=== PATIENT | male | born 1945 | race Caucasian/White ===

== ENCOUNTER → 2018-06-20 14:00 | Outpatient (CLI) | payer MEDICARE, OTHER, SELFPAY ==
--- NOTE | 2018-06-20 | DI.MRI.S_ITS ---
PROCEDURE: MR SHOULDER RT WO CON INDICATIONS: INJURY OF RIGHT SHOULDER TECHNIQUE: Noncontrast oblique coronal T2 fast spin echo with fat saturation, oblique sagittal T1 spin echo and T2 fast spin echo with fat saturation, axial T1 spin echo and T2 fast spin echo with fat saturation through the shoulder. COMPARISON: None. FINDINGS: Image quality: Excellent. Rotator cuff: There is high-grade articular surface partial thickness to full-thickness rupture involving the anterior to mid fibers of the distal supraspinatus at its insertion on the humeral head with 1.7 cm medial retraction of torn tendon fibers to the level of acromion and musculotendinous junction. Infraspinatus tendinosis or low-grade articular surface partial-thickness tear is seen. Tendinosis and low to moderate grade partial-thickness tear involving superior to mid fibers of distal subscapularis is also seen, extending to the level of musculotendinous junction. Sagittal images demonstrate supraspinatus muscle atrophy with approximately 30% loss of loss of muscle mass. Bones and bursae: No bone marrow contusions or fractures. Moderate a.c. joint and glenohumeral joint osteoarthritis is seen. The acromion demonstrates conventional anatomy, without an os acromiale. Moderate amount of subacromial subdeltoid bursal fluid and small amount of glenohumeral joint effusion is seen. No gross loose body. Capsule and soft tissues: Proximal intra-articular portion of the biceps tendon is not visualized and is suggestive of torn proximal long head of biceps tendon. Degenerative signal throughout labrum is seen with suggestion of superior anterior labral tear at 12 to 2:00 position. The rotator interval appears normal, without fibrosis. The coracohumeral ligament is normal in thickness. IMPRESSION: 1. Moderate to high-grade articular surface partial-thickness tear to full-thickness rupture involving anterior to mid fibers of distal supraspinatus with 1.7 cm medial retraction of torn tendon fibers to the level of acromion and musculotendinous junction. Mild to moderate atrophy of supraspinatus muscle. 2. Tendinosis and low-grade articular surface partial-thickness tear involving distal infraspinatus. Tendinosis and moderate grade partial-thickness tear involving superior to mid fibers of distal subscapularis. Suggestion of torn proximal intra-articular portion of the biceps tendon. 3. Degenerative changes throughout labrum with suggestion of superior anterior labral tear at 12 to 2:00 position. 4. Moderate amount of joint effusion or subacromial subdeltoid bursal fluid. Moderate a.c. and glenohumeral joint osteoarthritis. Dictated by: Carlos Lester M.D. on 06/20/2018 at 15:31 Approved by: Carlos Lester M.D. on 06/20/2018 at 15:55
== END ==
PROVIDERS: PCP Family Medicine; Visit Provider Family Medicine
DX: S46.011A Strain of muscle(s) and tendon(s) of the rotator cuff of right shoulder, initial encounter (principal); M25.411 Effusion, right shoulder; M19.011 Primary osteoarthritis, right shoulder
CPT/HCPCS: 73221

== ENCOUNTER → 2018-07-13 08:11 | Outpatient (CLI) | payer MEDICARE, OTHER, SELFPAY ==
[2018-07-13 10:06] LABS: Add Manual Diff / Slide Review NO; Basophils Percent Auto 0.4 % (0-2); Eosinophils Percent Auto 3.4 % (2-4); Hematocrit 42.4 % (41-53); Hemoglobin 14.8 g/dL (13.5-17.5); Lymphocytes Percent Auto 45.8 % (25-40); Mean Corpuscular Hemoglobin 31.5 PG (26-34); Monocytes Percent Auto 8.6 % (3-14); Neutrophils Absolute Auto 2300 /uL (3000-5900); Neutrophils Percent Auto 41.8 % (50-75); Platelet Count 203 X10^3/uL (150-400); Red Blood Cell Count 4.71 X10^6/uL (4.5-5.9); Red Cell Distribution Width 12.6 % (11.6-14.8); White Blood Cell Count 5.4 X10^3/uL (4.5-11.0)
[2018-07-13 10:20] LABS: Alanine Aminotransferase 42 IU/L (21-72); Albumin 4.4 g/dL (3.5-5.0); Albumin Globulin Ratio 1.3 (1.0-2.8); Alkaline Phosphatase 48 U/L (38-126); Aspartate Aminotransferase 38 IU/L (17-59); Bilirubin Total 0.7 mg/dL (0.2-1.3); Blood Urea Nitrogen 19 mg/dL (9-20); Calcium 9.4 mg/dL (8.4-10.2); Carbon Dioxide 28 mmol/L (22-32); Chloride 101 mmol/L (98-107); Cholesterol 256 mg/dL (140-199); Estimated Glomerular Filt Rate > 60.0 mL/min (>60); Globulin 3.3 g/dL (1.7-4.1); Glucose 97 mg/dL (80-110); HDL Cholesterol 63 mg/dL (40-60); HEMOLYSIS < 15 (0-50); LDL Cholesterol Calculated 174 mg/dL (<100); Potassium 4.4 mmol/L (3.4-5.1); Sodium 142 mmol/L (137-145); Total Protein 7.7 g/dL (6.3-8.2); Triglycerides 93 mg/dL (35-150)
== END ==
PROVIDERS: PCP Family Medicine; Visit Provider Family Medicine
DX: E78.5 Hyperlipidemia, unspecified (principal); Z12.5 Encounter for screening for malignant neoplasm of prostate
CPT/HCPCS: 36415; 80053; 80061; 85025; G0103

== ENCOUNTER → 2018-08-27 08:05 | Outpatient (CLI) | payer MEDICARE, OTHER, SELFPAY ==
[2018-08-27 09:35] LABS: Cholesterol 224 mg/dL (140-199); HDL Cholesterol 73 mg/dL (40-60); LDL Cholesterol Calculated 136 mg/dL (<100); Triglycerides 75 mg/dL (35-150)
== END ==
PROVIDERS: PCP Family Medicine; Visit Provider Family Medicine
DX: E78.5 Hyperlipidemia, unspecified (principal)
CPT/HCPCS: 36415; 80061

== ENCOUNTER 2019-06-23 12:05 | Emergency (ER) | payer MEDICARE, OTHER, SELFPAY ==
[2019-06-23] VITALS (7 sets, daily range): BP systolic 141–169; BP diastolic 69–87; PULSE 58–84; RESP 13–17; O2SAT 94–96; BMI 25.1
--- NOTE | 2019-06-23 12:21 | DI.RAD.S_ITS ---
PROCEDURE: XR CHEST 1V INDICATIONS: chest pain TECHNIQUE: One view of the chest was acquired. COMPARISON: [facility], , CHEST 1 VIEW, 08/02/2009, 12:30. FINDINGS: Surgical changes and devices: None. Lungs and pleura: Lungs are clear. No pleural effusions or pneumothorax. Mediastinum: Mediastinal contours appear normal. Heart size is normal. Bones and chest wall: No suspicious bony lesions. Overlying soft tissues appear unremarkable. IMPRESSION: No evidence acute pulmonary process. Dictated by: Yimi Hitchcock M.D. on 06/23/2019 at 13:02 Approved by: Yimi Hitchcock M.D. on 06/23/2019 at 13:04
[2019-06-23 12:59] LABS: Add Manual Diff / Slide Review NO; Basophils Absolute Auto 0 /uL (0-100); Basophils Percent Auto 0.5 % (0-2); Eosinophils Absolute Auto 0 /uL (0-450); Eosinophils Percent Auto 0.6 % (2-4); Hematocrit 42.5 % (41-53); Hemoglobin 14.8 g/dL (13.5-17.5); Lymphocytes Absolute Auto 1400 /uL (1100-4500); Mean Corpuscular HGB Conc 34.7 % (30-36); Mean Corpuscular Hemoglobin 31.7 PG (26-34); Mean Corpuscular Volume 91.4 fL (80-100); Monocytes Absolute Auto 800 /uL (0-900); Monocytes Percent Auto 12.1 % (3-14); Neutrophils Absolute Auto 4700 /uL (1500-7000); Neutrophils Percent Auto 66.8 % (50-75); Platelet Count 147 X10^3/uL (150-400); Red Blood Cell Count 4.65 X10^6/uL (4.5-5.9); Red Cell Distribution Width 13.1 % (11.6-14.8)
[2019-06-23 13:01] LABS: Prothrombin Time 11.9 SECONDS (10.1-12.7)
[2019-06-23 13:03] LABS: PTT Partial Thromboplastin Tim 28 SECONDS (26.4-36.2)
[2019-06-23 13:06] LABS: Alanine Aminotransferase 35 IU/L (21-72); Albumin 4.4 g/dL (3.5-5.0); Albumin Globulin Ratio 1.4 (1.0-2.8); Alkaline Phosphatase 41 U/L (38-126); Aspartate Aminotransferase 33 IU/L (17-59); Bilirubin Total 0.7 mg/dL (0.2-1.3); Blood Urea Nitrogen 23 mg/dL (9-20); Calcium 9.7 mg/dL (8.4-10.2); Carbon Dioxide 27 mmol/L (22-32); Chloride 102 mmol/L (98-107); Creatine Kinase 60 U/L (55-170); Estimated Glomerular Filt Rate > 60.0 mL/min (>60); Globulin 3.2 g/dL (1.7-4.1); Glucose 102 mg/dL (80-110); HEMOLYSIS < 15 (0-50); Lipase 45 U/L (23-300); Potassium 4.4 mmol/L (3.4-5.1); Sodium 139 mmol/L (137-145); Total Protein 7.6 g/dL (6.3-8.2)
[2019-06-23 13:17] LABS: Troponin I < 0.012 ng/mL (0.01-0.034)
--- NOTE | 2019-06-23 14:03 | ED_ITS ---
HPI - Chest Pain General Chief Complaint: Chest Pain Stated Complaint: Chest pain on left side Time Seen by Provider: 06/23/19 13:28 Source: patient and family () Mode of arrival: ambulatory Limitations: no limitations History of Present Illness HPI narrative: This is a 73-year-old male comes to the emergency department with complaint of chest pain. Patient states he has had similar episodes in the past over the years. He states he thinks it is probably related to his stomach but he is not 100% sure. He has been seen once before for similar. Patient states that he has had GI cocktails in the past and it seems to resolve the symptoms totally. He states that today about 30 he was [address] he had discomfort kind of in his epigastric left side of his chest. It did not really radiate anywhere. He describes a kind of like a pressure but it was really sharp was a traditional heartburn states he also did not have any nausea no shortness of breath, no vomiting. Patient denies any swelling in his extremities issues with bowel movements or urination. He states he exercises daily in the gym and has never had issues. He does take Prilosec daily, he states he had EGD a month ago which was found to be normal. He does not take any other medications regularly. He has had a lumbar laminectomy. Denies any allergies. No tobacco, he has had probably 3 or 4 alcoholic drinks daily over the weekend when they were at a loose festival. Denies illicit. PCP is Dr. Bedoya in [facility]. Family history is negative for cardiac issues. Related Data Home Medications Medication Instructions Recorded Confirmed albuterol sulfate [Ventolin HFA] 2 puff INHALATION Q6H PRN 06/23/19 06/23/19 ipratropium bromide 2 spray INTRANASAL TID PRN 06/23/19 06/23/19 omeprazole 20 mg PO DAILY 06/23/19 06/23/19 Allergies Allergy/AdvReac Type Severity Reaction Status Date / Time No Known Drug Allergies Allergy Verified 06/23/19 12:20 Review of Systems Review of Systems ROS Unobtainable: All systems reviewed & are unremarkable except as noted in HPI and below Constitutional Denies chills, Denies fever(s), Denies lethargy and Denies weakness Cardiovascular Reports chest pain (While Dr.), Denies diaphoresis, Denies syncope, Denies edema, Denies irregular heart rhythm, Denies lightheadedness, Denies radiating jaw, neck or arm pain, Denies palpitations, Denies dyspnea, Denies dyspnea on exertion and Denies orthopnea Respiratory Denies change in phlegm color, Denies chest congestion, Denies cough, Denies dyspnea, Denies dyspnea on exertion and Denies wheezing Gastrointestinal Gastrointestinal: Denies abdominal pain, Denies change in bowel habits, Denies dyspepsia, Denies heartburn, Denies diarrhea, Denies nausea and Denies vomiting Genitourinary Denies hematuria, Denies flank pain, Denies urinary frequency, Denies urinary incontinence and Denies urinary urgency Musculoskeletal Denies back pain Neurologic Denies syncope and Denies weakness Endocrine Denies palpitations Allergic/Immunologic Denies wheezing PFSH Social History Smoking Status: Never smoker Social History Smoking Status: Never smoker Exam Narrative Exam Narrative: GENERAL: Alert and oriented x three, well-nourished, well- appearing male in no acute distress. HEENT: Head normocephalic, atraumatic, EOMI, pupils reactive, face symmetric, moist mucous membranes NECK: Supple, full range of motion CARDIOVASCULAR: Regular rate and rhythm without murmurs, rubs or gallops. Nonreproducible chest pain. RESPIRATORY: Breath sounds equal bilaterally, no wheezes rales or rhonchi. ABDOMEN: Soft, nontender. Normoactive bowel sounds all 4 quadrants. No guarding or rebound, rigidity, no mass : No CVA tenderness EXTREMITIES: Normal range of motion, no clubbing or edema. Neurovascularly intact NEUROLOGICAL: Cranial nerves II through XII grossly intact. Moving all extremi ties. Normal gait. SKIN: Warm, dry, no petechiae, no rashes or lesions. Initial Vital Signs Initial Vital Signs: Vital Signs Pulse Rate 64 06/23/19 12:20 Respiratory Rate 15 06/23/19 12:20 Blood Pressure 169/87 H 06/23/19 12:20 Pulse Oximetry 96 06/23/19 12:20 Scores HEART Score Heart Score history: Slightly Suspicious Heart Score EKG: Normal Heart Score Age: > or = 65 years old Heart Score risk factors: No known risk factors Heart Score troponin: < or = to normal limit Heart Score Total: 2 Course Orders Ordered: ED Orders 06/23/19 12:21 XR chest 1V Stat EKG-12 Lead Stat 06/23/19 12:37 Complete Blood Count AUTO DIFF Stat Comprehensive Metabolic Panel Stat Lipase Stat Partial Thromboplastin Time Stat Prothrombin Time INR Stat Troponin & CK Cardiac Panel Stat 06/23/19 14:26 EKG-12 Lead Stat 06/23/19 14:45 Troponin & CK Cardiac Panel Stat Discontinued Medications Al Hydrox/Mg Hydrox/Simethicone 20 ml/ Lidocaine HCl 15 ml 0 ml PO NOW ONE Stop: 06/23/19 14:21 Last Admin: 06/23/19 14:39 Dose: Not Given Vital Signs - 8 hr 06/23/19 12:20 06/23/19 13:00 06/23/19 13:30 Pulse Rate 64 60 84 Respiratory Rate 15 14 13 Blood Pressure 169/87 H Blood Pressure [Right Arm] 150/81 H 141/75 H Pulse Oximetry 96 94 94 06/23/19 14:00 06/23/19 14:30 06/23/19 15:00 Pulse Rate 62 58 L Respiratory Rate 17 Blood Pressure Blood Pressure [Right Arm] 157/76 H 146/69 H 149/79 H Pulse Oximetry 95 06/23/19 15:22 Pulse Rate 58 L Respiratory Rate 13 Blood Pressure Blood Pressure [Right Arm] 149/79 H Pulse Oximetry 96 MDM - Chest Pain Lab Data Attestation: I reviewed the patient's lab results. Result diagrams: 06/23/19 12:37 06/23/19 12:37 Lab Results 06/23/19 06/23/19 06/23/19 Range/Units 12:37 12:37 12:37 WBC 7.0 (4.5-11.0) X10^3/uL RBC 4.65 (4.5-5.9) X10^6/uL Hgb 14.8 (13.5-17.5) g/dL Hct 42.5 (41-53) % MCV 91.4 (80-100) fL MCH 31.7 (26-34) PG MCHC 34.7 (30-36) % RDW 13.1 (11.6-14.8) % Plt Count 147 L (150-400) X10^3/uL Neut % (Auto) 66.8 (50-75) % Lymph % (Auto) 20.0 L (25-40) % Parker % (Auto) 12.1 (3-14) % Eos % (Auto) 0.6 L (2-4) % Baso % (Auto) 0.5 (0-2) % Neut # (Auto) 4700 (2186-9794) /uL Lymph # (Auto) 1400 (9539-2658) /uL Parker # (Auto) 800 (0-900) /uL Eos # (Auto) 0 (0-450) /uL Baso # (Auto) 0 (0-100) /uL PT 11.9 (10.1-12.7) SECONDS INR 1.0 (0.9-1.3) APTT 28 (26.4-36.2) SECONDS Sodium 139 (137-145) mmol/L Potassium 4.4 (3.4-5.1) mmol/L Chloride 102 (98-107) mmol/L Carbon Dioxide 27 (22-32) mmol/L BUN 23 H (9-20) mg/dL Creatinine 1.00 (0.66-1.25) mg/dL Estimated GFR > 60.0 (>60) mL/min BUN/Creatinine Ratio 23.0 H (6-22) Glucose 102 (80-110) mg/dL Calcium 9.7 (8.4-10.2) mg/dL Total Bilirubin 0.7 (0.2-1.3) mg/dL AST 33 (17-59) IU/L ALT 35 (21-72) IU/L Alkaline Phosphatase 41 (38-126) U/L Total Creatine Kinase 60 (55-170) U/L CK-MB (CK-2) TNP CK-MB (CK-2) Rel Index TNP Troponin I < 0.012 (0.01-0.034) ng/mL Total Protein 7.6 (6.3-8.2) g/dL Albumin 4.4 (3.5-5.0) g/dL Globulin 3.2 (1.7-4.1) g/dL Albumin/Globulin Ratio 1.4 (1.0-2.8) Lipase 45 (23-300) U/L 06/23/19 Range/Units 14:45 WBC (4.5-11.0) X10^3/uL RBC (4.5-5.9) X10^6/uL Hgb (13.5-17.5) g/dL Hct (41-53) % MCV (80-100) fL MCH (26-34) PG MCHC (30-36) % RDW (11.6-14.8) % Plt Count (150-400) X10^3/uL Neut % (Auto) (50-75) % Lymph % (Auto) (25-40) % Parker % (Auto) (3-14) % Eos % (Auto) (2-4) % Baso % (Auto) (0-2) % Neut # (Auto) (1260-6512) /uL Lymph # (Auto) (5425-1046) /uL Parker # (Auto) (0-900) /uL Eos # (Auto) (0-450) /uL Baso # (Auto) (0-100) /uL PT (10.1-12.7) SECONDS INR (0.9-1.3) APTT (26.4-36.2) SECONDS Sodium (137-145) mmol/L Potassium (3.4-5.1) mmol/L Chloride (98-107) mmol/L Carbon Dioxide (22-32) mmol/L BUN (9-20) mg/dL Creatinine (0.66-1.25) mg/dL Estimated GFR (>60) mL/min BUN/Creatinine Ratio (6-22) Glucose (80-110) mg/dL Calcium (8.4-10.2) mg/dL Total Bilirubin (0.2-1.3) mg/dL AST (17-59) IU/L ALT (21-72) IU/L Alkaline Phosphatase (38-126) U/L Total Creatine Kinase 59 (55-170) U/L CK-MB (CK-2) TNP CK-MB (CK-2) Rel Index TNP Troponin I < 0.012 (0.01-0.034) ng/mL Total Protein (6.3-8.2) g/dL Albumin (3.5-5.0) g/dL Globulin (1.7-4.1) g/dL Albumin/Globulin Ratio (1.0-2.8) Lipase (23-300) U/L Imaging Data Chest x-ray: Radiologist's impression: [place] [id number] [place] [id number] XRay Report Signed Patient: Leroy Root RMR#: [id number] : 1945cct:[id number] Age/Sex: 73 / MDate of Service: 06/23/19 Loc: ED Accession Number: [id number] Procedure: XR chest 1V Ordering Provider: Lela Craig D.O. PROCEDURE: XR CHEST 1V INDICATIONS: chest pain TECHNIQUE: One view of the chest was acquired. COMPARISON: [facility], CHEST 1 VIEW, 08/02/2009, 12:30. FINDINGS: Surgical changes and devices: None. Lungs and pleura: Lungs are clear. No pleural effusions or pneumothorax. Mediastinum: Mediastinal contours appear normal. Heart size is normal. Bones and chest wall: No suspicious bony lesions. Overlying soft tissues appear unremarkable. IMPRESSION: No evidence acute pulmonary process. Dictated by: Yimi Hitchcock M.D. on 06/23/2019 at 13:02 Approved by: Yimi Hitchcock M.D. on 06/23/2019 at 13:04 ECG Data Attestation: I personally reviewed and interpreted this ECG as follows: Prior ECG tracings: available for review Interpretation: Sinus rhythm with sinus arrhythmia rate of 70 P are 144 QRS of 104 and QTC of 421. No ST elevation or depression. Patient has prior from 08/02/2009 which appears similar with no other changes. MDM Narrative Medical decision making narrative: Discussed with patient some aspects of his HPI are concerning for cardiac but others are not. Discussed with him does not have a lot of risk factors other than age. He does not have any family history. Patient and I discussed observation versus serial troponin and follow up outpatient for stress testing. Patient would like to try GI cocktail and do serial troponin here in the emergency department. Patient and EKG x2, repeat EKG appears similar to initial with no new ST changes. Troponin negative x2 with no other acute changes. Patient's symptoms improved with GI cocktail. Discussed with patient I would have him talk to his primary care about stress testing is although he does not a lot of risk factors based on his age he could potentially be having cardiac issues causing his discomfort. He will contact them. We discussed he can return at any time. We discussed taking a baby aspirin daily for prevention. Discharge Plan Departure Patient Disposition: Home Clinical Impression: Atypical chest pain Discharge Date/Time: 06/23/19 15:40 Interventions: ED Discharge Assessment Last Done: 06/23/19 15:40 Instructions: DI for Atypical Chest Pain Activity Restrictions/Additional Instructions: Follow-up with your primary care physician in the next 24-48 hours for recheck and discuss getting set up for stress testing. Would recommend taking aspirin 81 mg until cleared very by your physician. Continue your other home medications. Return to the emergency department for new or worsening symptoms, lightheade dness, syncope, worsening chest pain, shortness of breath, diaphoresis, persistent vomiting, black or bloody stools or other new or concerning symptoms. Prescriptions: No Action omeprazole 20 mg capsule,delayed release(DR/EC) 20 mg PO DAILY RF: 0 albuterol sulfate [Ventolin HFA] 90 mcg/actuation HFA aerosol inhaler 2 puff inhalation Q6H PRN (Reason: Wheezing) RF: 0 ipratropium bromide 42 mcg (0.06 %) spray,non-aerosol 2 spray intranasal TID PRN (Reason: Allergy Symptoms) RF: 0 Referrals: Uriel Carrington MD [Physician] - Ursula Velazquez MD [Primary Care Provider] -
[2019-06-23 15:04] LABS: Creatine Kinase 59 U/L (55-170)
[2019-06-23 15:17] LABS: Troponin I < 0.012 ng/mL (0.01-0.034)
== END 2019-06-23 15:40 | disposition home or self-care (01) ==
PROVIDERS: Emergency Provider Emergency Medicine; PCP Family Medicine
DX: R07.89 Other chest pain (principal)
CPT/HCPCS: 36591; 71045; 80053; 82550; 83690; 84484; 85025; 85610; 85730; 93005; 93010; 99283; 99285

== ENCOUNTER → 2019-07-17 07:16 | Outpatient (CLI) | payer MEDICARE, OTHER, SELFPAY ==
--- NOTE | 2019-07-17 | DI.CT.S_ITS ---
PROCEDURE: CT CHEST WO CON INDICATIONS: Solitary pulmonary nodule TECHNIQUE: Noncontrast 5 mm thick sections acquired from the pulmonary apices to the posterior costophrenic angles. 1 mm lung window, 5 mm thick coronal and sagittal and 7 mm axial MIP reformats were then acquired. For radiation dose reduction, the following was used: automated exposure control, adjustment of mA and/or kV according to patient size. COMPARISON: CT chest 09/02/2018, 06/12/2018. Lung bases on CT abdomen pelvis 10/03/2017. FINDINGS: Image quality: Excellent. Lungs and pleura: No acute air space opacities. Right upper lobe pulmonary nodule measuring 5 x 5 mm, (3/79), previously 5 x 5 mm, and unchanged compared to 06/12/2018. Right middle lobe just ventral nodule measuring 5 x 3 mm, (3/162), previously 4 x 3 mm, and unchanged compared to 10/03/2017. No pleural effusions or pneumothorax. Central and peripheral airways are patent and normal in caliber. Mediastinum: Heart size is normal. Coronary artery calcifications. No pericardial effusion. Mildly prominent subcarinal node measuring 1 cm short axis, (2/24), previously 1.1 cm. There appears be a fatty hilum. Thoracic aorta and central pulmonary arteries are normal in size. Esophagus is normal in caliber. Small hiatal hernia. Bones and chest wall: No suspicious bony lesions. No vertebral body compression fractures. No axillary or supraclavicular adenopathy by size criteria. Thyroid gland is unremarkable. Abdomen: Visualized upper abdominal solid organs and bowel loops appear normal in the absence of contrast. IMPRESSION: 1. No new or enlarger pulmonary nodules. -Stable small right upper pulmonary nodule since 06/12/2018. -Stable small right middle lobe pulmonary nodule since 10/03/2017. 2. Stable mildly prominent subcarinal lymph node. Dictated by: Pato Sherman M.D. on 07/17/2019 at 14:48 Approved by: Pato Sherman M.D. on 07/17/2019 at 15:05
== END ==
PROVIDERS: PCP Family Medicine; Visit Provider Family Medicine
DX: R91.1 Solitary pulmonary nodule (principal)
CPT/HCPCS: 71250

== ENCOUNTER → 2019-09-10 08:41 | Outpatient (CLI) | payer MEDICARE, OTHER, SELFPAY ==
[2019-09-10 09:29] LABS: Add Manual Diff / Slide Review NO; Basophils Absolute Auto 0 /uL (0-100); Basophils Percent Auto 0.5 % (0-2); Eosinophils Absolute Auto 200 /uL (0-450); Eosinophils Percent Auto 4.5 % (2-4); Hematocrit 41.3 % (41-53); Lymphocytes Absolute Auto 1400 /uL (1100-4500); Lymphocytes Percent Auto 40.9 % (25-40); Mean Corpuscular HGB Conc 33.8 % (30-36); Mean Corpuscular Hemoglobin 30.8 PG (26-34); Monocytes Absolute Auto 400 /uL (0-900); Monocytes Percent Auto 10.4 % (3-14); Neutrophils Absolute Auto 1500 /uL (1500-7000); Neutrophils Percent Auto 43.7 % (50-75); Platelet Count 150 X10^3/uL (150-400); Red Blood Cell Count 4.53 X10^6/uL (4.5-5.9); White Blood Cell Count 3.5 X10^3/uL (4.5-11.0)
[2019-09-10 10:21] LABS: Alanine Aminotransferase 41 IU/L (21-72); Albumin 4.1 g/dL (3.5-5.0); Albumin Globulin Ratio 1.5 (1.0-2.8); Alkaline Phosphatase 43 U/L (38-126); Aspartate Aminotransferase 36 IU/L (17-59); Bilirubin Total 0.9 mg/dL (0.2-1.3); Blood Urea Nitrogen 23 mg/dL (9-20); Calcium 9.4 mg/dL (8.4-10.2); Carbon Dioxide 27 mmol/L (22-32); Chloride 99 mmol/L (98-107); Cholesterol 258 mg/dL (140-199); Estimated Glomerular Filt Rate > 60.0 mL/min (>60); Globulin 2.7 g/dL (1.7-4.1); Glucose 101 mg/dL (80-110); HDL Cholesterol 75 mg/dL (40-60); HEMOLYSIS < 15 (0-50); LDL Cholesterol Calculated 168 mg/dL (<100); Potassium 4.8 mmol/L (3.4-5.1); Sodium 136 mmol/L (137-145); Total Protein 6.8 g/dL (6.3-8.2); Triglycerides 76 mg/dL (35-150); VLDL Cholesterol Calculated 15 mg/dL (2-30)
[2019-09-10 10:52] LABS: Prostate Specific Antigen Scrn 0.355 ng/mL (0.1-4.0)
== END ==
PROVIDERS: PCP Family Medicine; Visit Provider Family Medicine
DX: Z12.5 Encounter for screening for malignant neoplasm of prostate (principal); K21.9 Gastro-esophageal reflux disease without esophagitis; E78.5 Hyperlipidemia, unspecified
CPT/HCPCS: 36415; 80053; 80061; 85025; G0103

== ENCOUNTER → 2020-07-02 15:49 | Outpatient (CLI) | payer MEDICARE, OTHER, SELFPAY ==
[2020-07-02 16:20] LABS: Bacteria Urine None Seen; RBC Urine None Seen (0-5/HPF); WBC Urine None Seen (0-5/HPF)
[2020-07-02 16:46] LABS: Appearance Urine UA CLEAR; Bilirubin Urine UA NEGATIVE (NEGATIVE); Color Urine UA ORANGE; Glucose Urine UA NEGATIVE (Negative); Ketones Urine UA NEGATIVE (NEGATIVE); Leukocyte Esterase Urine UA NEGATIVE (NEGATIVE); Nitrite Urine UA NEGATIVE (Negative); Occult Blood Urine UA NEGATIVE (Negative); Protein Urine UA NEGATIVE (Negative); Urobilinogen Urine UA 0.2 E.U./dL (0.2); pH Urine UA 5.5 (4.5-8.0)
[2020-07-02 17:08] LABS: Culture Indicated Urine Cult Not Indicated; Urine Comments Microscopic Normal
== END ==
PROVIDERS: PCP Student in an Organized Health Care Education/Training Program; Referring Provider Student in an Organized Health Care Education/Training Program; Visit Provider Student in an Organized Health Care Education/Training Program
DX: N41.9 Inflammatory disease of prostate, unspecified (principal)
CPT/HCPCS: 81001

== ENCOUNTER → 2020-11-17 11:03 | Outpatient (CLI) | payer MEDICARE, OTHER, SELFPAY ==
[2020-11-17 14:43] LABS: Prostate Specific Antigen 0.377 ng/mL (0.10-4.00)
== END ==
PROVIDERS: PCP Student in an Organized Health Care Education/Training Program; Referring Provider Student in an Organized Health Care Education/Training Program; Visit Provider Student in an Organized Health Care Education/Training Program
DX: Z12.5 Encounter for screening for malignant neoplasm of prostate (principal); N41.9 Inflammatory disease of prostate, unspecified
CPT/HCPCS: 36415; 84153; G0103

== ENCOUNTER → 2021-02-16 10:47 | Outpatient (CLI) | payer MEDICARE, OTHER, SELFPAY ==
--- NOTE | 2021-02-16 | DI.CT.S_ITS ---
PROCEDURE: CT SINUS SCREEN WO CON INDICATIONS: disorders of nose and nasal sinuses TECHNIQUE: Noncontrast 3.0 mm axial images acquired from the frontal sinuses to the mid-sella, with coronal and sagittal reformats. For radiation dose reduction, the following was used: automated exposure control, adjustment of mA and/or kV according to patient size. COMPARISON: None. FINDINGS: Image quality: Excellent. Maxillary Sinuses: No bony remodeling or destruction. Sinuses are clear. Ethmoid Air Cells: No bony remodeling or destruction. Sinuses are clear. Sphenoid Sinuses: No bony remodeling or destruction. Sinuses are clear. Frontal Sinuses: No bony remodeling or destruction. Sinuses are clear. Ostiomeatal Complexes: Ostiomeatal complexes are patent. No Aaron cells. Miscellaneous: Visualized intra-orbital contents are normal. No damir bullosa or paradoxical turbinate curvature. There is mild rightward nasal septal deviation. IMPRESSION: No active paranasal sinus disease can be seen. Mild rightward nasal septal deviation noted. Dictated by: Jose Roche M.D. on 02/16/2021 at 10:46 Approved by: Jose Roche M.D. on 02/16/2021 at 10:47
== END ==
PROVIDERS: PCP Student in an Organized Health Care Education/Training Program; Referring Provider Otolaryngology; Visit Provider Otolaryngology
DX: R51.9 Headache, unspecified (principal); J32.4 Chronic pansinusitis; J34.89 Other specified disorders of nose and nasal sinuses; J34.2 Deviated nasal septum
CPT/HCPCS: 70486

== ENCOUNTER → 2021-02-18 15:45 | Outpatient (CLI) | payer MEDICARE, OTHER, SELFPAY ==
[2021-02-22 13:00] LABS: Fecal Immunochemical Test Negative (Negative)
== END ==
PROVIDERS: PCP Student in an Organized Health Care Education/Training Program; Referring Provider Student in an Organized Health Care Education/Training Program; Visit Provider Student in an Organized Health Care Education/Training Program
DX: Z12.11 Encounter for screening for malignant neoplasm of colon (principal)
CPT/HCPCS: 82274

== ENCOUNTER → 2021-07-29 14:00 | Outpatient (CLI) | payer MEDICARE, OTHER, SELFPAY | PROVIDERS: PCP Student in an Organized Health Care Education/Training Program; Referring Provider Student in an Organized Health Care Education/Training Program; Visit Provider Student in an Organized Health Care Education/Training Program | DX: Z12.5 Encounter for screening for malignant neoplasm of prostate (principal) | CPT/HCPCS: 36415; G0103 ==

== ENCOUNTER 2021-12-19 11:32 | Emergency (ER) | payer MEDICARE, OTHER, SELFPAY ==
[2021-12-19 11:47] VITALS: BP 170/78; PULSE 65; RESP 18; TEMP 36.1; O2SAT 99; BMI 22.9
--- NOTE | 2021-12-19 11:51 | DI.RAD.S_ITS ---
PROCEDURE: XR SHOULDER LT MIN 2V INDICATIONS: 'snapped' feeling in shoulder when bench pressing today TECHNIQUE: 3 views of the shoulder were acquired. COMPARISON: None. FINDINGS: Bones: No fractures or dislocations. No suspicious bony lesions. Visualized ribs appear intact. Mild glenohumeral and acromioclavicular joint space narrowing. Soft tissues: No suspicious soft tissue calcifications. IMPRESSION: Mild arthritic changes fracture or dislocation. Approved by: Kyle Trent M.D. on 12/19/2021 at 11:53
== END 2021-12-19 17:54 | disposition left against medical advice (07) ==
PROVIDERS: Emergency Provider Emergency Medicine; PCP Student in an Organized Health Care Education/Training Program
DX: Z53.21 Procedure and treatment not carried out due to patient leaving prior to being seen by health care provider (principal)
CPT/HCPCS: 73030; 99283

== ENCOUNTER → 2022-02-10 13:39 | Outpatient (CLI) | payer MEDICARE, OTHER, SELFPAY ==
--- NOTE | 2022-02-10 | DI.MRI.S_ITS ---
PROCEDURE: MR SHOULDER LT WO CON INDICATIONS: LEFT SHOULDER ROTATOR CUFF STRAIN TECHNIQUE: Noncontrast oblique coronal T2 fast spin echo with fat saturation, oblique sagittal T1 spin echo and T2 fast spin echo with fat saturation, axial T1 spin echo and T2 fast spin echo with fat saturation through the shoulder. COMPARISON: [facility], MR, MR SHOULDER RT WO CON, 06/20/2018, 14:18. FINDINGS: Image quality: Excellent. Rotator cuff: Moderate to advanced supraspinatus tendinopathy with full-thickness tear and retraction of the tendon by approximately 1.7 cm. Mild to moderate infraspinatus tendinopathy with small partial articular surface and interstitial tears. Mild subscapularis tendinopathy with interstitial tears. No significant muscle atrophy. Bones and bursae: No evidence of fracture. Patchy T2 hyperintense signal is seen in the lateral aspect of the humeral head, compatible with contusion. At least moderate acromioclavicular joint degeneration. No os acromiale. Capsule and soft tissues: Signal within the anterior, superior labrum, which may reflect degenerative change/tear. The long head of the biceps tendon demonstrates normal location and demonstrates evidence of tendinopathy. IMPRESSION: 1. Full-thickness tear the supraspinatus as detailed above. 2. Mild to moderate infraspinatus tendinopathy with small partial articular surface and interstitial tears. 3. Mild subscapularis tendinopathy with interstitial tears. 4. Contusion in the lateral aspect of the humerus. 5. At least moderate AC joint degeneration. Dictated by: Jasbir Shaffer M.D. on 02/10/2022 at 14:26 Approved by: Jasbir Shaffer M.D. on 02/10/2022 at 14:32
== END ==
PROVIDERS: PCP Student in an Organized Health Care Education/Training Program; Referring Provider Orthopaedic Surgery; Visit Provider Orthopaedic Surgery
DX: S46.012A Strain of muscle(s) and tendon(s) of the rotator cuff of left shoulder, initial encounter (principal); S40.012A Contusion of left shoulder, initial encounter; X58.XXXA Exposure to other specified factors, initial encounter; M19.012 Primary osteoarthritis, left shoulder
CPT/HCPCS: 73221

== ENCOUNTER → 2022-08-08 10:53 | Outpatient (CLI) | payer MEDICARE, OTHER, SELFPAY ==
[2022-08-08 13:13] LABS: Prostate Specific Antigen Scrn 0.627 ng/mL (0.1-4.0)
== END ==
PROVIDERS: PCP Student in an Organized Health Care Education/Training Program; Referring Provider Student in an Organized Health Care Education/Training Program; Visit Provider Student in an Organized Health Care Education/Training Program
DX: Z12.5 Encounter for screening for malignant neoplasm of prostate (principal)
CPT/HCPCS: 36415; G0103

== ENCOUNTER → 2022-09-20 15:39 | Outpatient (CLI) | payer MEDICARE, OTHER, SELFPAY ==
--- NOTE | 2022-09-20 16:05 | DI.MRI.S_ITS ---
PROCEDURE: MR CERVICAL SPINE WO CON INDICATIONS: Radiculopathy, cervical region TECHNIQUE: Noncontrast sagittal T1 spin echo and T2 fast spin echo, sagittal STIR, foraminal oblique sagittal T2 fast spin echo, and axial gradient echo or T2 fast spin echo through the cervical spine. COMPARISON: None. FINDINGS: Image quality: Excellent Alignment: Trace retrolisthesis of C5 on C6. Marrow: Scattered Modic changes without acute fracture. Cord: No definite myelopathy signal. Soft tissues: No prevertebral soft tissue swelling. No paravertebral soft tissue masses or fluid collections. Specific levels: C2-C3: No stenosis. C3-C4: Posterior disc osteophyte complex. Facet and uncovertebral arthropathy. Mild central narrowing. Moderate right neural foraminal narrowing. Moderate left neural foraminal narrowing. C4-C5: Uncovertebral and facet arthropathy. Posterior disc osteophyte complex. Moderate central narrowing. Moderate to severe bilateral neural foraminal narrowing. C5-C6: Uncovertebral and facet arthropathy. Posterior disc osteophyte complex. Mild to moderate central narrowing. Moderate to severe right neural foraminal narrowing. Moderate to severe left neural foraminal narrowing. C6-C7. Uncovertebral and facet arthropathy. Posterior disc osteophyte complex. Mild to moderate central narrowing. Moderate right and left neural foraminal narrowing. C7-T1: No stenosis. 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 Dictated by: Jamie Rosen M.D. on 09/20/2022 at 16:44 Approved by: Jamie Rosen M.D. on 09/20/2022 at 16:50
== END ==
PROVIDERS: PCP Student in an Organized Health Care Education/Training Program; Referring Provider Orthopaedic Surgery; Visit Provider Orthopaedic Surgery
DX: M47.22 Other spondylosis with radiculopathy, cervical region (principal); M48.02 Spinal stenosis, cervical region
CPT/HCPCS: 72141

== ENCOUNTER → 2023-01-16 15:14 | Outpatient (CLI) | payer MEDICARE, OTHER, SELFPAY ==
[2023-01-16 16:24] LABS: Add Manual Diff / Slide Review NO; Basophils Absolute Auto 0 /uL (0-100); Basophils Percent Auto 0.5 % (0-2); Eosinophils Absolute Auto 100 /uL (0-450); Hematocrit 40.8 % (41-53); Lymphocytes Absolute Auto 1900 /uL (1100-4500); Lymphocytes Percent Auto 44.7 % (25-40); Mean Corpuscular HGB Conc 34.4 % (30-36); Mean Corpuscular Hemoglobin 31.5 PG (26-34); Mean Corpuscular Volume 91.4 fL (80-100); Monocytes Absolute Auto 500 /uL (0-900); Monocytes Percent Auto 11.8 % (3-14); Neutrophils Absolute Auto 1700 /uL (1500-7000); Platelet Count 158 X10^3/uL (150-400); Red Blood Cell Count 4.46 X10^6/uL (4.5-5.9); Red Cell Distribution Width 13.4 % (11.6-14.8); White Blood Cell Count 4.2 X10^3/uL (4.5-11.0)
[2023-01-16 16:56] LABS: Alanine Aminotransferase 33 IU/L (<50); Albumin 4.2 g/dL (3.5-5.0); Albumin Globulin Ratio 1.5 (1.0-2.8); Alkaline Phosphatase 52 U/L (38-126); Aspartate Aminotransferase 31 IU/L (17-59); Bilirubin Total 0.4 mg/dL (0.2-1.3); Blood Urea Nitrogen 27 mg/dL (9-20); Carbon Dioxide 27 mmol/L (22-32); Chloride 99 mmol/L (98-107); Estimated Glomerular Filt Rate > 60 mL/min (>60); Globulin 2.8 g/dL (1.7-4.1); Glucose 144 mg/dL (80-110); HEMOLYSIS < 15 (0-50); Sodium 137 mmol/L (137-145)
[2023-01-16 17:12] LABS: Vitamin D 25 Hydroxy (D3) 34.1 ng/mL (30.0-100.0)
[2023-01-16 17:45] LABS: Vitamin B12 328 pg/mL (239-931)
== END ==
PROVIDERS: PCP Student in an Organized Health Care Education/Training Program; Referring Provider Student in an Organized Health Care Education/Training Program; Visit Provider Student in an Organized Health Care Education/Training Program
DX: R41.89 Other symptoms and signs involving cognitive functions and awareness (principal); F34.1 Dysthymic disorder
CPT/HCPCS: 36415; 80053; 82306; 82607; 84443; 85025

== ENCOUNTER → 2023-01-22 14:46 | Outpatient (CLI) | payer MEDICARE, OTHER, SELFPAY ==
--- NOTE | 2023-01-22 14:48 | DI.CT.S_ITS ---
PROCEDURE: CT CHEST WO CON INDICATIONS: follow up pulmonary nodule TECHNIQUE: Noncontrast 5 mm thick sections acquired from the pulmonary apices to the posterior costophrenic angles. 1 mm lung window, 5 mm thick coronal and sagittal and 7 mm axial MIP reformats were then acquired. For radiation dose reduction, the following was used: automated exposure control, adjustment of mA and/or kV according to patient size. COMPARISON: [facility], CT, CT CHEST WO CON, 07/17/2019, 7:23. FINDINGS: Image quality: Excellent. Lungs and pleura: Pulmonary nodules are as follows (all described on series 3): 1. Unchanged right upper lobe pulmonary nodule, image 80, 5 mm. 2. Previous 5 mm nodule described as right middle lobe previously, may have been a fissural nodule. It is not visualized on the current study. Reference previous image 161/3. 3. There are multiple very tiny scattered pulmonary nodules which were present previously, and are stable, and are consistent with benign pulmonary nodules. Mild changes of pulmonary interstitial fibrosis, stable. No new or increasing pulmonary nodules noted. No acute air space opacities. No pleural effusions or pneumothorax. Central and peripheral airways are patent and normal in caliber. Mediastinum: Heart size is normal. No pericardial effusion. No mediastinal adenopathy by size criteria. Thoracic aorta and central pulmonary arteries are normal in size. Esophagus is normal in caliber. No hiatal hernia. Bones and chest wall: No suspicious bony lesions. No vertebral body compression fractures. No axillary or supraclavicular adenopathy by size criteria. Thyroid gland is relatively small without any thyroid nodules. Abdomen: Visualized upper abdominal solid organs and bowel loops appear normal in the absence of contrast. IMPRESSION: 1. Stable nodularity. No findings suspicious for malignancy in the chest. 2. Stable findings of mild chronic interstitial pulmonary fibrosis. Dictated by: Yimi Hitchcock M.D. on 01/22/2023 at 17:31 Approved by: Yimi Hitchcock M.D. on 01/22/2023 at 17:37
== END ==
PROVIDERS: PCP Student in an Organized Health Care Education/Training Program; Referring Provider Student in an Organized Health Care Education/Training Program; Visit Provider Student in an Organized Health Care Education/Training Program
DX: R91.8 Other nonspecific abnormal finding of lung field (principal); J84.10 Pulmonary fibrosis, unspecified
CPT/HCPCS: 71250

== ENCOUNTER → 2023-12-23 14:15 | Outpatient (CLI) | payer MEDICARE, OTHER, SELFPAY ==
--- NOTE | 2023-12-23 | DI.MRI.S_ITS ---
PROCEDURE: MR SHOULDER LT WO CON INDICATIONS: rotator cuff tear or rupture of left shoulder TECHNIQUE: Noncontrast oblique coronal T2 fast spin echo with fat saturation, oblique sagittal T1 spin echo and T2 fast spin echo with fat saturation, axial T1 spin echo and T2 fast spin echo with fat saturation through the shoulder. COMPARISON: [facility], MR, MR SHOULDER LT WO CON, 02/10/2022, 13:56. FINDINGS: Image quality: Excellent. Rotator cuff: There is again noted is full-thickness rupture involving distal supraspinatus at its insertion on the humeral head with up to 2.9 cm medial retraction of torn tendon fibers to the level of acromion. Low-grade articular surface partial-thickness tear involving distal infraspinatus at its insertion on the humeral head is seen. Low-grade intrasubstance partial-thickness tear involving distal subscapularis is also noted. Sagittal images demonstrate moderate supraspinatus muscle atrophy. Bones and bursae: No bone marrow contusions or fractures. Moderate acromioclavicular joint osteoarthritic changes are seen with joint space narrowing and downward osteophyte formation depressing the musculotendinous junction of supraspinatus. The acromion demonstrates conventional anatomy, without an os acromiale. Moderate joint effusion and subacromial subdeltoid bursal fluid is seen, no gross loose bodies. Capsule and soft tissues: There is signal abnormality and fraying of superior anterior labrum at 12 to 2 o'clock position suggestive of superior anterior labral tear. Subtle signal abnormality and fraying of inferior labrum at 5 to 7 o'clock position is also seen. The long head of the biceps tendon appears thickened with intrasubstance T2 hyperintense signal. The rotator interval appears normal, without fibrosis. The coracohumeral ligament is normal in thickness. IMPRESSION: 1. Chronic appearing full-thickness rupture involving distal supraspinatus at its insertion on the humeral head with up to 2.9 cm medial retraction of torn tendon fibers to the level of acromion. Moderate supraspinatus muscle atrophy. 2. Low-grade articular surface partial-thickness tear involving distal infraspinatus. Low-grade intrasubstance partial-thickness tear involving distal subscapularis. 3. Moderate acromioclavicular joint osteoarthritis. Moderate joint effusion and subacromial subdeltoid bursal fluid. No gross loose bodies. 4. Suggestion of superior anterior labral tear at 12 to 2 o'clock position and inferior labral tear at 5 to 7 o'clock position. 5. Low to moderate grade intrasubstance partial-thickness tear involving proximal long head of biceps. Dictated by: Carlos Lester M.D. on 12/24/2023 at 9:15 Approved by: Carlos Lester M.D. on 12/24/2023 at 9:21
== END ==
PROVIDERS: PCP Student in an Organized Health Care Education/Training Program; Referring Provider Orthopaedic Surgery; Visit Provider Orthopaedic Surgery
DX: M75.122 Complete rotator cuff tear or rupture of left shoulder, not specified as traumatic (principal); S46.112A Strain of muscle, fascia and tendon of long head of biceps, left arm, initial encounter; M19.012 Primary osteoarthritis, left shoulder
CPT/HCPCS: 73221

== ENCOUNTER 2024-03-18 09:05 | Emergency (ER) | payer MEDICARE, OTHER, SELFPAY ==
[2024-03-18 09:15] VITALS: BP 179/97; PULSE 73; RESP 16; TEMP 36.4; O2SAT 97; BMI 24.3
--- NOTE | 2024-03-18 09:30 | DI.RAD.S_ITS ---
PROCEDURE: XR CHEST 2V INDICATIONS: shortness of breath,prouctive cough TECHNIQUE: 2 views of the chest were acquired. COMPARISON: [facility], JENNIFER, XR CHEST 1V, 06/23/2019, 12:42. [facility], CR, CHEST 1 VIEW, 08/02/2009, 12:30. FINDINGS: Surgical changes and devices: None. Lungs and pleura: Increased, ill-defined right perihilar opacities. Lower lung opacity also seen in the lateral view. No pleural effusions. Possible small nodule projects over the second rib in the right lung. Mediastinum: Unchanged cardiomediastinal contours. Bones and chest wall: Degenerative changes. IMPRESSION: Ill-defined right perihilar and lower lung opacities, possibly infection given provided history. Possible additional nodule projects over the 2nd rib on the right. Consider future imaging surveillance. Dictated by: Jamie Rosen M.D. on 03/18/2024 at 9:54 Approved by: Jamie Rosen M.D. on 03/18/2024 at 9:56
--- NOTE | 2024-03-18 09:31 | ED.URI ---
HPI - URI/Sore Throat General Chief Complaint: Upper Respiratory Symptoms Stated Complaint: bronchitis Time Seen by Provider: 03/18/24 09:14 Source: patient Mode of arrival: Ambulatory History of Present Illness HPI Narrative: This is an 78-year-old male with history of GERD, remote history of lumbar laminectomy who presents with several days of nasal congestion, cough with clear productive sputum and occasional wheezing in his chest. Patient states no fevers or chills. He states he has had nasal congestion quite a bit, little bit of hoarseness. He states, chest pain but feels occasionally tight in his chest. When he has a coughing fit he will feel like something gets stuck and he will have some wheezing and he is able to cough it out in the wheezing resolves. Patient denies any urinary symptoms. Did have little bit of diarrhea which he noted started after beginning Mucinex. Patient denies any new swelling of extremities. Patient notes that he did go on a camping trip with 17 friends about a week ago had a lot of smoke exposure as well as being around quite a few individuals but did not have any known sick contacts. He is otherwise on Prilosec as his only daily medication. Has a history of lumbar laminectomy remotely. No known drug allergies. No tobacco, occasional alcohol, no recreational drugs. Related Data Previous Rx's Medication Instructions Recorded paroxetine HCl 20 mg tablet (Paxil) 20 mg PO DAILY #90 tabs 05/07/23 omeprazole 20 mg capsule,delayed 20 mg PO BID #180 caps 07/18/23 release amoxicillin 875 mg-potassium 1 tab PO BID #20 tabs 03/18/24 clavulanate 125 mg tablet Allergies Allergy/AdvReac Type Severity Reaction Status Date / Time No Known Drug Allergies Allergy Verified 05/07/23 11:17 Review of Systems Review of Systems ROS Unobtainable: All systems reviewed & are unremarkable except as noted in HPI and below Patient History Medical History Anxiety Traumatic complete tear of left rotator cuff Lower urinary tract symptoms due to benign prostatic hyperplasia Chronic back pain Hearing loss GERD (gastroesophageal reflux disease) Surgical History Anesthesia History of lumbar laminectomy Family History Father Cancer Mother Cancer Social History Smoking Status: Never smoker Smoking Status: Never smoker alcohol intake frequency: 0-2 drinks per day Substance Use Type: does not use Exam Narrative Exam Narrative: GEN: well nourished, well appearing male, alert and oriented x 3, patient appears to be in mild distress. Patient is seated on the edge of the bed appears quite comfortable. HEENT: Atraumatic, pupils are equal round reactive to light, extraocular movements are intact, nares show nasal congestion, there is no conjunctival pallor. Throat is clear without any exudates, erythema, tonsillar enlargement or uvular deviation HEART: Regular rate and rhythm without murmur, clicks, rubs. No edema bilateral lower extremities. LUNGS:Lungs clear to auscultation, no wheezes, rales, crackles, chest moves symmetrically, no tachypnea or accessory muscle use. Patient does have a dry persistent cough. ABD:bowel sounds normal, soft, non-tender, no guarding, rebound, rigidity, no masses noted, no hepatosplenomegaly MSCL: Non-tender, no muscle atrophy, muscles strength 5/5 upper and lower extremities, full range of motion, normal gait NEURO:CN 2-12 intact, sensation normal Initial Vital Signs Initial Vital Signs: Vital Signs Temperature 97.6 F 03/18/24 09:15 Pulse Rate 73 03/18/24 09:15 Respiratory Rate 16 03/18/24 09:15 Blood Pressure 179/97 H 03/18/24 09:15 Pulse Oximetry 97 03/18/24 09:15 Oxygen Delivery Method Room Air 03/18/24 09:15 Course Orders Ordered: ED Orders 03/18/24 09:12 Covid-19 + FLU A/B + RSV - PCR Stat 03/18/24 09:30 Chest [XR chest 2V] Stat EKG-12 Lead Stat 03/18/24 09:40 BNP [NT-proBNP (BNP-Adult 18+)] Stat CBC Auto Diff [Complete Blood Count AUTO DIFF] Stat CMP [Comprehensive Metabolic Panel] Stat Troponin & CK Cardiac Panel Stat Vital Signs Vital signs: Vital Signs - 8 hr 03/18/24 10:55 Pulse Rate 69 Blood Pressure 150/92 H Pulse Oximetry 96 Oxygen Delivery Method Room Air MDM - URI/Sore Throat Lab Data 03/18/24 09:40 03/18/24 09:40 Labs: Lab Results 03/18/24 03/18/24 Range/Units 09:12 09:40 WBC 4.8 (4.5-11.0) X10^3/uL RBC 4.72 (4.5-5.9) X10^6/uL Hgb 15.0 (13.5-17.5) g/dL Hct 43.4 (41-53) % MCV 92.0 (80-100) fL MCH 31.8 (26-34) PG MCHC 34.5 (30-36) % RDW 13.2 (11.6-14.8) % Plt Count 146 L (150-400) X10^3/uL Neut % (Auto) 55.2 (50-75) % Lymph % (Auto) 28.7 (25-40) % [place] % (Auto) 14.4 H (3-14) % Eos % (Auto) 1.3 L (2-4) % Baso % (Auto) 0.4 (0-2) % Neut # (Auto) 2600 (2289-1194) /uL Lymph # (Auto) 1400 (4011-6108) /uL [place] # (Auto) 700 (0-900) /uL Eos # (Auto) 100 (0-450) /uL Baso # (Auto) 0 (0-100) /uL Sodium 131 L (137-145) mmol/L Potassium 4.4 (3.4-5.1) mmol/L Chloride 100 (98-107) mmol/L Carbon Dioxide 22 (22-32) mmol/L BUN 21 H (9-20) mg/dL Creatinine 0.95 (0.66-1.25) mg/dL Estimated GFR > 60 (>60) mL/min BUN/Creatinine Ratio 22.1 H (6-22) Glucose 107 (80-110) mg/dL Calcium 9.2 (8.4-10.2) mg/dL Total Bilirubin 1.1 (0.2-1.3) mg/dL AST 48 (17-59) IU/L ALT 44 (<50) IU/L Alkaline Phosphatase 50 (38-126) U/L Total Creatine Kinase 82 (55-170) U/L Troponin I 0.013 (0.01-0.034) ng/mL NT-Pro-B Natriuret Pep 148 (<450) pg/mL Total Protein 7.9 (6.3-8.2) g/dL Albumin 4.7 (3.5-5.0) g/dL Globulin 3.2 (1.7-4.1) g/dL Albumin/Globulin Ratio 1.5 (1.0-2.8) SARS-CoV-2 (PCR) Negative (Negative) Influenza A (RT-PCR) Flu a negative (NEGATIVE) Influenza B (RT-PCR) Flu b negative (NEGATIVE) RSV (PCR) Negative (Negative) MDM Narrative Medical decision making narrative: 78-year-old male with symptoms most consistent with viral infection, nasal swab and chest x-ray were obtained. Patient patient's age and reported occasional wheezing with no history of lung disease labs were also obtained. Respiratory panel for COVID/influenza/RSV is negative Chest x-ray shows ill-defined right perihilar lower lung opacities possible nodules or 2nd right rib consider future imaging surveillance. Lung opacity also seen in the lateral view with no pleural effusions. Labs CBC shows normal white count at 4.8 hemoglobin of 15 platelets of 146 patient has had occasional thrombocytopenia and this range. Sodium is 131 with BUN 21 otherwise normal electrolytes glucose of 107 creatinine 0.95 with a negative LFTs. Troponin is 0.013 and BNP is 148 EKG Patient notes that he has had a nodule on his imaging for some time has always been negative he has been told that he has does not require follow up anymore for this. We will go ahead and start oral antibiotic and patient to follow up with primary care as needed he has had loose stools with Mucinex so discussed does not have to continue it unless he finds it helpful. Discharge Plan Departure Patient Disposition: Home Clinical Impression: Pneumonia, Pulmonary nodule Activity Restrictions/Additional Instructions: Your imaging today does show changes consistent with pneumonia, there is also a possible nodule versus infection which needs repeat imaging to make sure that these changes resolved. Please call your physician to set up follow up for repeat imaging in the next 1-2 months. Take antibiotics until completed. Prescription sent to [facility] in [place]. You can continue Mucinex if you find it helpful. Return for fevers new or worsening chest pain, shortness of breath, lightheadedness or passing out, new swelling of your extremities or other new or concerning changes. Prescriptions: New amoxicillin-pot clavulanate 875-125 mg tablet 1 tab PO BID Qty: 20 0RF No Action omeprazole 20 mg capsule,delayed release(DR/EC) 20 mg PO BID Qty: 180 2RF paroxetine HCl [Paxil] 20 mg tablet 20 mg PO DAILY Qty: 90 1RF Rx Instructions: Start with 1/2 tab daily for 4-5 days then can increase to 20mg daily and maintain there if tolerated. Can keep at 10mg daily if so desired and gauge for effect over time. Referrals: Wilfred Last MD [Primary Care Provider] - Stand Alone Forms: Patient Portal/API
[2024-03-18 09:48] LABS: Add Manual Diff / Slide Review NO; Basophils Absolute Auto 0 /uL (0-100); Basophils Percent Auto 0.4 % (0-2); Eosinophils Absolute Auto 100 /uL (0-450); Eosinophils Percent Auto 1.3 % (2-4); Hematocrit 43.4 % (41-53); Lymphocytes Absolute Auto 1400 /uL (1100-4500); Lymphocytes Percent Auto 28.7 % (25-40); Mean Corpuscular HGB Conc 34.5 % (30-36); Mean Corpuscular Hemoglobin 31.8 PG (26-34); Monocytes Absolute Auto 700 /uL (0-900); Monocytes Percent Auto 14.4 % (3-14); Neutrophils Absolute Auto 2600 /uL (1500-7000); Neutrophils Percent Auto 55.2 % (50-75); Platelet Count 146 X10^3/uL (150-400); Red Blood Cell Count 4.72 X10^6/uL (4.5-5.9); Red Cell Distribution Width 13.2 % (11.6-14.8); White Blood Cell Count 4.8 X10^3/uL (4.5-11.0)
[2024-03-18 10:07] LABS: COVID-19 CEPHEID 4-PLEX PCR Negative (Negative); Influenza A - CEPHEID Flu A NEGATIVE (NEGATIVE); Influenza B - CEPHEID Flu B NEGATIVE (NEGATIVE); Respiratory Syncytial Virus Negative (Negative)
[2024-03-18 10:08] LABS: Alanine Aminotransferase 44 IU/L (<50); Albumin 4.7 g/dL (3.5-5.0); Albumin Globulin Ratio 1.5 (1.0-2.8); Alkaline Phosphatase 50 U/L (38-126); Aspartate Aminotransferase 48 IU/L (17-59); BUN Creatinine Ratio 22.1 (6-22); Bilirubin Total 1.1 mg/dL (0.2-1.3); Blood Urea Nitrogen 21 mg/dL (9-20); Calcium 9.2 mg/dL (8.4-10.2); Carbon Dioxide 22 mmol/L (22-32); Chloride 100 mmol/L (98-107); Creatine Kinase 82 U/L (55-170); Estimated Glomerular Filt Rate > 60 mL/min (>60); Globulin 3.2 g/dL (1.7-4.1); Glucose 107 mg/dL (80-110); HEMOLYSIS 16 (0-50); Potassium 4.4 mmol/L (3.4-5.1); Sodium 131 mmol/L (137-145); Total Protein 7.9 g/dL (6.3-8.2)
[2024-03-18 10:19] LABS: NT-proBNP (BNP-Adult 18+) 148 pg/mL (<450); Troponin I 0.013 ng/mL (0.01-0.034)
[2024-03-18 10:55] VITALS: BP 150/92; PULSE 69; O2SAT 96
== END 2024-03-18 10:55 | disposition home or self-care (01) ==
PROVIDERS: Emergency Provider Emergency Medicine; PCP Student in an Organized Health Care Education/Training Program
DX: J18.9 Pneumonia, unspecified organism (principal); R91.1 Solitary pulmonary nodule; Z20.822 Contact with and (suspected) exposure to COVID-19
CPT/HCPCS: 0241U; 36415; 71046; 80053; 82550; 83880; 84484; 85025; 99281; 99284

== ENCOUNTER 2024-06-26 09:56 | Emergency (ER) | payer MEDICARE, OTHER, SELFPAY ==
[2024-06-26 10:08] VITALS: BP 138/67; PULSE 60; RESP 18; TEMP 36.4; O2SAT 99; BMI 24.9
--- NOTE | 2024-06-26 10:32 | DI.RAD.S_ITS ---
PROCEDURE: XR LUMBAR SPINE 2-3V INDICATIONS: Nontraumatic low back pain TECHNIQUE: 3 views of the lumbar spine were acquired. COMPARISON: None. FINDINGS: Bones: 5 [id number] vertebrae are present. There is normal bony alignment. No vertebral body compression fractures. No suspicious bony lesions. Severe L1-L2, L2-L3 and L5-S1 degenerative disc disease. Mild L3-L4 and L4-L5 degenerative disc disease. Mild L3-L4, L4-L5 and L5-S1 facet arthropathy. Soft tissues: Overlying bowel gas pattern is normal. No suspicious soft tissue calcifications. IMPRESSION: Multilevel degenerative disc disease. Multilevel facet arthropathy. No acute osseous lesion. If symptoms and/or clinical suspicion for pathology persists, evaluation with CT or MRI should be considered for further assessment. Dictated by: Rosalie Buckley MD, PhD on 06/26/2024 at 10:54 Approved by: Rosalie Buckley MD, PhD on 06/26/2024 at 10:55
--- NOTE | 2024-06-26 12:00 | ED_ITS ---
HPI - Back Pain/Injury General Chief Complaint: Back Pain/Injury Stated Complaint: back and L leg pain Time Seen by Provider: 06/26/24 10:29 Source: patient Mode of arrival: Ambulatory History of Present Illness HPI Narrative: Patient is an 78-year-old male. A couple days ago stated that he started to notice some lower back pain and now has some radicular symptoms to his left leg. No fevers. No specific trauma. No problems urinating. No problems with bowel movement. He did have surgery many years ago and has not had any radicular symptoms since that time. Does have cervical spine issues in his scheduled to see physical therapy this afternoon because of that. Has not tried anything for symptoms prior to arrival. Related Data Home Medications Medication Instructions Recorded Confirmed albuterol sulfate 90 mcg/actuation 2 puff inhalation Q4-6H PRN 04/15/24 04/15/24 aerosol inhaler chlorpheniramine maleate 4 mg 4 mg PO Q8H PRN 04/15/24 04/15/24 tablet (Allergy (chlorpheniramine)) fluticasone propionate 50 1 spray intranasal Q12H 04/15/24 04/15/24 mcg/actuation nasal spray,suspension (Flonase Allergy Relief) Previous Rx's Medication Instructions Recorded omeprazole 20 mg capsule,delayed 20 mg PO BID #180 caps 07/18/23 release cyclobenzaprine 10 mg tablet 10 mg PO TID PRN muscle spasm #20 06/26/24 tabs hydrocodone 5 mg-acetaminophen 325 1 tab PO Q8H PRN pain #10 tabs 06/26/24 mg tablet methylprednisolone 4 mg tablets in See Rx Instructions PO .COMPLEX 06/26/24 a dose pack (Medrol (Errol)) #21 ea Allergies Allergy/AdvReac Type Severity Reaction Status Date / Time No Known Drug Allergies Allergy Verified 04/15/24 09:46 Review of Systems Review of Systems Narrative: See HPI Patient History Medical History Anxiety Traumatic complete tear of left rotator cuff Lower urinary tract symptoms due to benign prostatic hyperplasia Chronic back pain Hearing loss GERD (gastroesophageal reflux disease) Surgical History Anesthesia History of lumbar laminectomy Family History Father Cancer Mother Cancer Social History Smoking Status: Former smoker Smoking Status: Former smoker alcohol intake frequency: 3 or more drinks per day Substance Use Type: does not use Exam Initial Vital Signs Initial Vital Signs: Vital Signs Temperature 97.6 F 06/26/24 10:08 Pulse Rate 60 06/26/24 10:08 Respiratory Rate 18 06/26/24 10:08 Blood Pressure 138/67 06/26/24 10:08 Pulse Oximetry 99 06/26/24 10:08 Oxygen Delivery Method Room Air 06/26/24 10:08 Back/Spine/Pelvis Other: Minimal tenderness to palpation left-sided paraspinal region Neuro Other: Patient is ambulatory Extrem Other: No gross deformities Course Orders Ordered: ED Orders 06/26/24 10:32 XR lumbar spine 2-3V Stat Vital Signs Vital signs: Vital Signs - 8 hr 06/26/24 10:08 Temperature 97.6 F Pulse Rate 60 Respiratory Rate 18 Blood Pressure 138/67 Pulse Oximetry 99 Oxygen Delivery Method Room Air MDM - Back Pain/Injury Imaging Data Lumbar x-ray: Radiologist's Impression: PROCEDURE: XR LUMBAR SPINE 2-3V INDICATIONS: Nontraumatic low back pain TECHNIQUE: 3 views of the lumbar spine were acquired. COMPARISON: None. FINDINGS: Bones: 5 [id number] vertebrae are present. There is normal bony alignment. No vertebral body compression fractures. No suspicious bony lesions. Severe L1- L2, L2-L3 and L5-S1 degenerative disc disease. Mild L3-L4 and L4-L5 degenerative disc disease. Mild L3-L4, L4-L5 and L5-S1 facet arthropathy. Soft tissues: Overlying bowel gas pattern is normal. No suspicious soft tissue calcifications. IMPRESSION: Multilevel degenerative disc disease. Multilevel facet arthropathy MDM Narrative Medical decision making narrative: Low suspicion for cauda equina, fracture, hematoma, abscess. For now will treat symptomatically. X-ray is unremarkable. Patient is ambulatory. We discussed return precautions and follow-up instructions. He expressed understanding and agreement. Discharge Plan Departure Patient Disposition: Home Clinical Impression: Lumbar back pain with radiculopathy affecting left lower extremity Instructions: DI for Low Back Pain Activity Restrictions/Additional Instructions: Recommend you contact your primary care doctor for a follow-up. Use the medication that we prescribed here in the emergency department today as directed. Try to stay as active as possible. Return to the emergency department for new symptoms. Prescriptions: New cyclobenzaprine 10 mg tablet 10 mg PO TID PRN (Reason: muscle spasm) Qty: 20 0RF methylprednisolone [Medrol (Errol)] 4 mg tablets,dose pack See Rx Instructions .ROUTE .COMPLEX Qty: 21 0RF Rx Instructions: orally per package directions hydrocodone-acetaminophen 5-325 mg tablet 1 tab PO Q8H PRN (Reason: pain) Qty: 10 0RF No Action omeprazole 20 mg capsule,delayed release(DR/EC) 20 mg PO BID Qty: 180 2RF albuterol sulfate 90 mcg/actuation HFA aerosol inhaler 2 puff inhalation Q4-6H PRN fluticasone propionate [Flonase Allergy Relief] 50 mcg/actuation spray,suspension 1 spray intranasal Q12H Rx Instructions: administer into each nostril chlorpheniramine maleate [Allergy (chlorpheniramine)] 4 mg tablet 4 mg PO Q8H PRN Rx Instructions: do not exceed 2 doses per 24 hrs Referrals: Wilfred Last MD [Primary Care Provider] - Stand Alone Forms: Patient Portal/API
== END 2024-06-26 12:09 | disposition home or self-care (01) ==
PROVIDERS: Emergency Provider Emergency Medicine; PCP Student in an Organized Health Care Education/Training Program
DX: M54.16 Radiculopathy, lumbar region (principal)
CPT/HCPCS: 72100; 99281; 99283

== ENCOUNTER → 2025-01-05 13:47 | Outpatient (CLI) | payer MEDICARE, OTHER, SELFPAY ==
--- NOTE | 2025-01-05 13:48 | DI.US.S_ITS ---
PROCEDURE: US PERIPH VENOUS LOW EXTREM BI INDICATIONS: Rule out DVT TECHNIQUE: Real-time imaging, as well as color and pulse Doppler interrogation, were performed of the deep veins of both legs from the inguinal ligament to the popliteal fossa, with documentation of the visualized calf veins. COMPARISON: None. FINDINGS: Right: The common femoral, femoral, popliteal, and the visualized calf veins are normally compressible, and free of intraluminal thrombus. Color and pulse Doppler demonstrate normal phasic intravascular flow. There is normal augmentation response to distal compression maneuver. Left: The common femoral, femoral, popliteal, and the visualized calf veins are normally compressible, and free of intraluminal thrombus. Color and pulse Doppler demonstrate normal phasic intravascular flow. There is normal augmentation response to distal compression maneuver. IMPRESSION: No findings of deep venous thrombosis in either lower extremity. Dictated by: Sonny Bernardo M.D. on 01/05/2025 at 14:42 Approved by: Sonny Bernardo M.D. on 01/05/2025 at 14:42
== END ==
PROVIDERS: PCP Student in an Organized Health Care Education/Training Program; Referring Provider Registered Nurse; Visit Provider Registered Nurse
DX: M79.604 Pain in right leg (principal); M79.605 Pain in left leg
CPT/HCPCS: 93970

== ENCOUNTER 2025-01-26 10:09 | Emergency (ER) | payer MEDICARE, OTHER, SELFPAY ==
[2025-01-26 10:13] VITALS: BP 183/86; PULSE 64; RESP 18; TEMP 36.5; O2SAT 99; BMI 24.3
--- NOTE | 2025-01-26 10:17 | DI.RAD.S_ITS ---
PROCEDURE: XR SHOULDER RT MIN 2V INDICATIONS: heard and felt a pop/limited ROM TECHNIQUE: 3 views of the shoulder were acquired. COMPARISON: [facility], CR, XR SHOULDER LT MIN 2V, 12/19/2021, 13:00. FINDINGS: Bones: No fractures or dislocations. Moderate acromioclavicular joint and glenohumeral joint osteoarthritic changes are seen. No suspicious bony lesions. Visualized ribs appear intact. Soft tissues: No suspicious soft tissue calcifications. IMPRESSION: No acute right shoulder fracture or dislocation. Moderate right shoulder joint osteoarthritis. Dictated by: Carlos Lester M.D. on 01/26/2025 at 11:05 Approved by: Carlos Lester M.D. on 01/26/2025 at 11:06
--- NOTE | 2025-01-26 11:27 | ED.UPPEXIN ---
HPI - Extremity Injury (Upper) <Dannielle Armstrong PA-C - Last Filed: 01/26/25 11:34> General Chief Complaint: Extremity Injury, Upper Stated Complaint: per pt torn rotator cuff Time Seen by Provider: 01/26/25 11:14 History of Present Illness HPI narrative: 79-year-old male presents to the ED status post a right shoulder injury sustained just prior to arrival. Patient was in the gym, was attempting to put a 25 lb weight on the manuelito, when he heard a loud pop from his right shoulder, followed by pain. Since then, patient's pain has persisted and patient's range of motion of the arm is impacted due to the pain. No numbness, tingling, weakness. Patient endorses prior history of rotator cuff injuries in bilateral shoulders. Related Data Home Medications Medication Instructions Recorded Confirmed omeprazole 20 mg capsule,delayed 20 mg PO DAILY 01/05/25 01/05/25 release Allergies Allergy/AdvReac Type Severity Reaction Status Date / Time No Known Drug Allergies Allergy Verified 01/05/25 13:33 Review of Systems <Dannielel Armstrong PA-C - Last Filed: 01/26/25 11:34> Constitutional Constitutional: Denies chills, Denies fatigue, Denies fever(s), Denies frequent falls, Denies lethargy and Denies weakness Eyes Eyes: Denies change in vision, Denies eye discharge, Denies irritation and Denies loss of vision ENT Ears, Nose, Mouth, and Throat: Denies change in voice, Denies dizziness, Denies neck pain, Denies sore throat and Denies throat swelling Cardiovascular Cardiovascular: Denies chest pain, Denies irregular heart rhythm, Denies lightheadedness, Denies palpitations, Denies dyspnea, Denies dyspnea on exertion and Denies orthopnea Respiratory Respiratory: Denies cough, Denies dyspnea, Denies dyspnea on exertion and Denies wheezing Gastrointestinal Gastrointestinal: Denies abdominal pain, Denies change in bowel habits, Denies diarrhea, Denies nausea and Denies vomiting Musculoskeletal Musculoskeletal: Denies neck pain and Denies numbness Comments: R shoulder pain Integumentary/Breasts Skin/Breast: Denies pruritus, Denies erythema, Denies rash and Denies wounds Neurologic Neurologic: Denies behavioral changes, Denies confusion, Denies dizziness, Denies frequent falls, Denies loss of vision, Denies numbness and Denies weakness Psychiatric Psychiatric: Denies anxiety, Denies behavioral changes, Denies confusion, Denies depression, Denies homicidal ideation and Denies suicidal ideation Endocrine Endocrine: Denies fatigue, Denies flushing and Denies palpitations Hematologic/Lymphatic Hematologic/Lymphatic: Denies easy bruising Allergic/Immunologic Allergic/Immunologic: Denies urticaria, Denies throat swelling and Denies wheezing Patient History <Dannielle Armstrong PA-C - Last Filed: 01/26/25 11:34> Medical History Anxiety Traumatic complete tear of left rotator cuff Lower urinary tract symptoms due to benign prostatic hyperplasia Chronic back pain Hearing loss GERD (gastroesophageal reflux disease) Surgical History Anesthesia History of lumbar laminectomy Family History Father Cancer Mother Cancer Social History Smoking Status: Former smoker Smoking Status: Former smoker alcohol intake frequency: 3 or more drinks per day Alcohol type: beer Exam <Dannielle Armstrong PA-C - Last Filed: 01/26/25 11:34> Narrative Exam Narrative: Const General:?cooperative, healthy appearing and comfortable [facility] Head:?normal to inspection Ears:?hearing grossly normal bilaterally Nose:?external nose normal Face and sinus:?normal facial exam and sinuses nontender Mouth:?oral mucosae normal Throat:?posterior oropharynx normal Eyes General:?appearance normal, both eyes and all related structures Neck Neck:?normal visual inspection and no lymphadenopathy noted Resp Effort & Inspection:?normal respiratory effort Auscultation:?clear to auscultation bilaterally Cardio Rate:?regular rate Rhythm:?regular rhythm Musculoskeletal No tenderness to palpation, bruising, deformities. Range of motion is limited by pain. Patient is unable to to a side-arm raise due to pain. External rotation and abduction also impacted by pain. Neurovascularly intact. Neuro General:?patient alert, patient awake and patient oriented x3 Initial Vital Signs Initial Vital Signs: Vital Signs Temperature 97.7 F 01/26/25 10:13 Pulse Rate 64 01/26/25 10:13 Respiratory Rate 18 01/26/25 10:13 Blood Pressure 183/86 H 01/26/25 10:13 Pulse Oximetry 99 01/26/25 10:13 Oxygen Delivery Method Room Air 01/26/25 10:13 <Lexi Madera DO - Last Filed: 01/30/25 07:10> Initial Vital Signs Initial Vital Signs: Vital Signs Temperature 97.7 F 01/26/25 10:13 Pulse Rate 64 01/26/25 10:13 Respiratory Rate 18 01/26/25 10:13 Blood Pressure 183/86 H 01/26/25 10:13 Pulse Oximetry 99 01/26/25 10:13 Oxygen Delivery Method Room Air 01/26/25 10:13 Course <Dannielle Armstrong PA-C - Last Filed: 01/26/25 11:34> Orders Ordered: ED Orders 01/26/25 10:17 XR shoulder RT min 2V Stat Vital Signs Vital signs: Vital Signs - 8 hr 01/26/25 10:13 Temperature 97.7 F Pulse Rate 64 Respiratory Rate 18 Blood Pressure 183/86 H Pulse Oximetry 99 Oxygen Delivery Method Room Air <Lexi Madera DO - Last Filed: 01/30/25 07:10> Orders Ordered: ED Orders 01/26/25 10:17 XR shoulder RT min 2V Stat Vital Signs Vital signs: Vital Signs - 8 hr 01/26/25 10:13 Temperature 97.7 F Pulse Rate 64 Respiratory Rate 18 Blood Pressure 183/86 H Pulse Oximetry 99 Oxygen Delivery Method Room Air MDM - Extremity Injury (Upper) <SD Price Last Filed: 01/26/25 11:34> MDM Narrative Medical decision making narrative: 79-year-old male presents to the ED status post a right shoulder injury sustained just prior to arrival. X-ray was obtained which shows no acute right shoulder fracture or dislocation. 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 Discussed findings with patient. Recommend wearing a sling to ease recovery. Also recommend lidocaine patches, ice for the 1st 24 hours, followed by heat, Tylenol. Recommend follow-up with PCP and ortho if symptoms do not improve in the next few days. ED return precautions discussed with patient. Patient verbalized understanding. Medical records reviewed: Yes Discharge Plan Departure Patient Disposition: Home Clinical Impression: Injury of shoulder, right Qualifiers: Encounter type: initial encounter Qualified Code(s): S49.91XA - Unspecified injury of right shoulder and upper arm, initial encounter Instructions: DI for Shoulder Sprain Activity Restrictions/Additional Instructions: You were evaluated in the ED today for a shoulder injury. Your x-ray did not show any fractures or dislocations. Your symptoms are likely due to a musculoskeletal sprain/strain. You have been fitted with a sling for comfort and healing. You may apply ice for the 1st 24 hours, followed by heat. You may also apply lidocaine patches, take Tylenol. If your symptoms do not improve over the next few days, please follow-up with your PCP and ortho specialist. You may call [facility] at [phone] for recommendations on a shoulder specialist. Return to the ED if you have worsening symptoms, numbness, tingling, weakness. Prescriptions: No Action omeprazole 20 mg capsule,delayed release(DR/EC) 20 mg PO DAILY Referrals: Wilfred Last MD [Primary Care Provider] - Stand Alone Forms: Patient Portal/API/Survey ED Sign-out <Lexi Madera DO - Last Filed: 01/30/25 07:10> Cosign ED Attending Coscheriature Attestation: I was available for consultation.
[2025-01-26 11:42] VITALS: BP 177/91; PULSE 66; RESP 14; O2SAT 98
== END 2025-01-26 11:44 | disposition home or self-care (01) ==
PROVIDERS: Emergency Provider Student in an Organized Health Care Education/Training Program; PCP Student in an Organized Health Care Education/Training Program
DX: S49.91XA Unspecified injury of right shoulder and upper arm, initial encounter (principal); X50.0XXA Overexertion from strenuous movement or load, initial encounter
CPT/HCPCS: 73030; 99283

== ENCOUNTER → 2025-02-09 14:44 | Outpatient (CLI) | payer MEDICARE, OTHER, SELFPAY ==
--- NOTE | 2025-02-09 14:46 | DI.MRI.S_ITS ---
PROCEDURE: MR SHOULDER RT W CON INDICATIONS: EXTREME WEAKNESS IN RIGHT SHOULDER AFTER WT LIFTING INJURY TECHNIQUE: After the administration of 12 mL of dilute intra-articular Gadolinium contrast, oblique coronal T1 and T2 spin echo with fat saturation, oblique sagittal T1 spin echo with and without fat saturation, oblique sagittal T2 fast spin echo with fat saturation, axial T1 spin echo with fat saturation through the shoulder. COMPARISON: None. FINDINGS: Image quality: Excellent. Rotator cuff: In the supraspinatus, there is high-grade, full width, articular sided tear at the footprint. Additional full-thickness, full width tear of the infraspinatus, with tendon retraction to the level of the mid humeral head. The teres minor is unremarkable. Full-thickness, full width tear of the subscapularis. The retracted tendon of the subscapularis is not definitely visualized. The Mild muscle edema of the infraspinatus. Moderate fatty atrophy of the supraspinatus and the subscapularis. Bones and bursae: Severe degenerative changes of the acromioclavicular joint with large osteophytosis of the distal clavicle. Type 2 acromion. No os acromiale. Mild subacromial/subdeltoid bursitis. Mild subchondral cystic changes at the posterior greater tuberosity with moderate subchondral marrow edema, reactive. No acute fracture. Severe degenerative changes of the glenohumeral joint with complete chondral denudation of the glenoid, and large area chondral denudation in the humeral head. Mild osteophytosis of the humeral head. Capsule and soft tissues: Superior labral tear, extending anteriorly to the anterior inferior labrum. No paralabral cyst. The extra-articular biceps tendon is not visualized, concerning for full-thickness tear. The intra-articular biceps tendon is not definitely visualized either, concerning for full-thickness tear. Large glenohumeral effusion with synovitis. No intra-articular body. IMPRESSION: 1. Severe degenerative changes of the acromioclavicular joint and the glenohumeral joint. 2. High-grade, full width tear of the supraspinatus. 3. Full-thickness, full width tear of the infraspinatus, and the subscapularis. 4. Full-thickness tear of the proximal biceps tendon. 5. Large glenohumeral effusion with synovitis. Dictated by: Nicky Marie M.D. on 02/09/2025 at 17:20 Approved by: Nicky Marie M.D. on 02/09/2025 at 17:31
--- NOTE | 2025-02-09 14:46 | DI.RAD.S_ITS ---
PROCEDURE: FL ARTHROGRAM SHOULDER RT INDICATIONS: EXTREME WEAKNESS AFTER WT LIFTING INJURY COMPARISON: [facility], MR, MR SHOULDER RT W CON, 02/09/2025, 14:57. TECHNIQUE: The indications, alternatives, benefits, risks, and complications of the procedure were explained to the patient. Written informed consent was obtained and placed in the chart. The shoulder was examined fluoroscopically and a site for needle placement chosen for entry into the glenohumeral joint from an anterior approach. The skin was prepped and draped in a sterile fashion, and 1% lidocaine infiltrated from skin down to joint capsule. A spinal needle was inserted into the glenohumeral joint, and a small amount of iodinated contrast media injected to confirm intra-articular placement of the needle tip. This was followed by approximately 12 mL dilute solution of a gadolinium containing MR contrast agent. The needle was removed and a dressing was applied. The patient was given postprocedural instructions and sent to the MR suite for MR imaging. FINDINGS: A single fluoroscopic spot image demonstrates intra-articular location of injected iodinated contrast. IMPRESSION: Successful fluoroscopically guided administration of dilute Gadolinium solution into the shoulder joint for MR arthrogram. Dictated by: Ann Booker M.D. on 02/09/2025 at 16:52 Approved by: Ann Booker M.D. on 02/09/2025 at 16:52
== END ==
PROVIDERS: PCP Family Medicine; Referring Provider Family Medicine; Visit Provider Family Medicine
DX: M75.121 Complete rotator cuff tear or rupture of right shoulder, not specified as traumatic (principal); S46.211A Strain of muscle, fascia and tendon of other parts of biceps, right arm, initial encounter; M25.511 Pain in right shoulder; M25.411 Effusion, right shoulder; M65.911 Unspecified synovitis and tenosynovitis, right shoulder
CPT/HCPCS: 23350; 73040; 73222; A9579

== ENCOUNTER → 2025-04-01 08:12 | Outpatient (CLI) | payer MEDICARE, OTHER, SELFPAY ==
[2025-04-01 09:51] LABS: Prostate Specific Antigen 2.49 ng/mL (0.10-4.00)
== END ==
PROVIDERS: PCP Family Medicine; Referring Provider Urology; Visit Provider Urology
DX: N40.1 Benign prostatic hyperplasia with lower urinary tract symptoms (principal); N41.1 Chronic prostatitis
CPT/HCPCS: 36415; 84153

== ENCOUNTER → 2025-06-24 11:20 | Outpatient (CLI) | payer MEDICARE, OTHER, SELFPAY ==
[2025-06-24 12:56] LABS: Prostate Specific Antigen 3.14 ng/mL (0.10-4.00)
== END ==
PROVIDERS: PCP Family Medicine; Referring Provider Urology; Visit Provider Urology
DX: R97.20 Elevated prostate specific antigen [PSA] (principal)
CPT/HCPCS: 36415; 84153

== ENCOUNTER → 2025-06-27 12:19 | Outpatient (CLI) | payer MEDICARE, OTHER, SELFPAY ==
[2025-06-27 13:17] LABS: Appearance Urine UA CLEAR; Bilirubin Urine UA NEGATIVE (NEGATIVE); Color Urine UA YELLOW; Glucose Urine UA NEGATIVE (Negative); Ketones Urine UA NEGATIVE (NEGATIVE); Leukocyte Esterase Urine UA NEGATIVE (NEGATIVE); Nitrite Urine UA NEGATIVE (Negative); Occult Blood Urine UA NEGATIVE (Negative); Protein Urine UA NEGATIVE (Negative); Specific Gravity Urine UA 1.020 (1.000-1.035); Urobilinogen Urine UA 1.0 E.U./dL (0.2); pH Urine UA 6.5 (4.5-8.0)
== END ==
PROVIDERS: PCP Family Medicine; Referring Provider Urology; Visit Provider Urology
DX: R30.0 Dysuria (principal); R35.0 Frequency of micturition; R39.15 Urgency of urination
CPT/HCPCS: 81001

== ENCOUNTER → 2025-07-24 09:43 | Outpatient (CLI) | payer MEDICARE, OTHER, SELFPAY ==
[2025-07-24 11:32] LABS: Prostate Specific Antigen 2.88 ng/mL (0.10-4.00)
== END ==
PROVIDERS: PCP Family Medicine; Referring Provider Urology; Visit Provider Urology
DX: R39.9 Unspecified symptoms and signs involving the genitourinary system (principal); Z12.5 Encounter for screening for malignant neoplasm of prostate
CPT/HCPCS: 36415; 84153

== ENCOUNTER → 2025-08-03 11:56 | Outpatient (CLI) | payer MEDICARE, OTHER, SELFPAY ==
--- NOTE | 2025-08-03 11:59 | DI.RAD.S_ITS ---
PROCEDURE: XR HIP W PEL IF DONE LT 2V INDICATIONS: CHRONIC L HIP PAIN TECHNIQUE: Two views of the hip were acquired. COMPARISON: None. FINDINGS: Bones: There are no osseous abnormalities. SI and hip joints: Mild bilateral hip and SI degeneration noted. Moderate L5- S1 degenerative disc and facet disease Disc and facet disease. Chondrocalcinosis of the femoral head cartilage appreciated Soft tissues: No soft tissue swelling, calcification or mass. IMPRESSION: Degeneration Dictated by: Tito England M.D. on 08/04/2025 at 10:28 Approved by: Tito England M.D. on 08/04/2025 at 10:29
== END ==
PROVIDERS: PCP Family Medicine; Referring Provider Family Medicine; Visit Provider Family Medicine
DX: M16.0 Bilateral primary osteoarthritis of hip (principal); M25.552 Pain in left hip; M47.817 Spondylosis without myelopathy or radiculopathy, lumbosacral region; M47.818 Spondylosis without myelopathy or radiculopathy, sacral and sacrococcygeal region; M51.379 Other intervertebral disc degeneration, lumbosacral region without mention of lumbar back pain or lower extremity pain; M11.252 Other chondrocalcinosis, left hip; G89.29 Other chronic pain
CPT/HCPCS: 73502

== ENCOUNTER → 2025-10-21 15:26 | Outpatient (CLI) | payer MEDICARE, OTHER, SELFPAY ==
[2025-10-21 16:51] LABS: Appearance Urine UA CLEAR; Bilirubin Urine UA NEGATIVE (NEGATIVE); Color Urine UA YELLOW; Glucose Urine UA NEGATIVE (Negative); Ketones Urine UA NEGATIVE (NEGATIVE); Leukocyte Esterase Urine UA NEGATIVE (NEGATIVE); Nitrite Urine UA NEGATIVE (Negative); Occult Blood Urine UA NEGATIVE (Negative); Protein Urine UA NEGATIVE (Negative); Specific Gravity Urine UA 1.020 (1.000-1.035); Urobilinogen Urine UA 1.0 E.U./dL (0.2); pH Urine UA 6.5 (4.5-8.0)
[2025-10-21 17:23] LABS: Culture Indicated Urine Cult Not Indicated
== END ==
PROVIDERS: PCP Family Medicine; Referring Provider Urology; Visit Provider Urology
DX: R39.9 Unspecified symptoms and signs involving the genitourinary system (principal)
CPT/HCPCS: 81001

== ENCOUNTER → 2025-11-02 11:39 | Outpatient (CLI) | payer MEDICARE, OTHER, SELFPAY | PROVIDERS: PCP Family Medicine; Referring Provider Family Medicine; Visit Provider Urology | DX: N40.1 Benign prostatic hyperplasia with lower urinary tract symptoms (principal) | CPT/HCPCS: 36415; 84153; 84154 ==

== ENCOUNTER 2025-11-05 13:21 | Emergency (ER) | payer MEDICARE, OTHER, SELFPAY ==
--- OUTSIDE RECORDS SUMMARY | 2025-11-05 13:24 | XMS_ITS | Encounter Summary ---
Author Organization [facility] Address [address] [place] [id number] Care Team Providers Care Planning Assistant Name Role Phone Ursula Velazquez MD Primary Care Provider [phone] [facility] Unavailable Unavailable Encounter Details Date Type Department Care Team (Late Contact Info) Description 05/13/2019 Scanned Document SCANNED ONLY Scanned, Document Social History Tobacco Use Types Packs/Day Years Used Date Smoking Tobacco: Former Smokeless Tobacco: Never Alcohol Use Standard Drinks/Week Comments Yes 0 (1 standard drink = 0.6 oz pur e alcohol) 2 drinks daily Sex and Gender Information Value Date Recorded Sex Assigned at Male 01/17/2024 1:19 PM PST Legal Sex Male 10:01 AM PDT Gender Identity Not on file Sexual Orientation Straight 01/17/2024 1: 19 PM PST documented as of this encounter Plan of Treatment Upcoming Encounters Date Type Department Care Team (Late Contact Info) Description 11/25/2025 10:00 AM PST Office Visit FAMILY MED[facility]INE - [place], [place] [address] [place] [phone] Ursula Velazquez MD [address] [facility] [address] [phone] 02/03/2026 11:00 AM PDT Office Visit NEUROLOGY - [place], [place] - [address] [phone] Ursula Velazquez MD [address] [facility] [address] [phone] Bereket Gomez MD [address] [place] [id number] documented as of this encounter Visit Diagnoses Not on filedocumented in this encounter Additional Health Concerns Infection Onset Date Last Indicated Resolved Time Influenza A 01/31/2019 01/31/2019 documented as of this encounter Care Teams Planning Assistant Relationship Specialty Start Date End Date Ursula Velazquez MD [address] [facility] [address] [phone] PCP - General Family Medicine 02/15/17 [facility] Licensed Clinical Able Bodied Watchman 10/14/24 documented as of this encounter
[2025-11-05 13:27] VITALS: BP 203/104; PULSE 80; RESP 12; TEMP 36.7; O2SAT 98; BMI 24.3
--- NOTE | 2025-11-05 13:33 | DI.RAD.S_ITS ---
PROCEDURE: XR CHEST 1V INDICATIONS: Chest Pain TECHNIQUE: One view of the chest was acquired. COMPARISON: [facility], CR, XR CHEST 2V, 03/18/2024, 9:38. FINDINGS: Surgical changes and devices: None. Lungs and pleura: Lungs are clear. No pleural effusions or pneumothorax. Mediastinum: Mediastinal contours appear normal. Heart size is normal. Bones and chest wall: No suspicious bony lesions. Overlying soft tissues appear unremarkable. IMPRESSION: No acute cardiopulmonary abnormality is seen. Dictated by: Andre Meehan M.D. on 11/05/2025 at 14:21 Approved by: Andre Meehan M.D. on 11/05/2025 at 14:22
--- NOTE | 2025-11-05 13:38 | EKG_ITS ---
[place] [address] [address], [place] [address] Test Date: 2025-11-05 Pat Name: Leroy Root Department: Room: Gender: Male Railroader: NINA : 1945 Requested By: Order Number: [id number] Reading MD: Tito Lake MD Measurements Intervals [place] Rate: 71 P: 13 HI: 154 QRS: -37 QRSD: 96 T: 13 QT: 398 QTc: 432 Interpretive Statements Sinus rhythm with premature atrial complexes Left axis deviation Electronically Signed On 11-06-2025 7:21:43 PST by Tito Lake MD
[2025-11-05] MEDS: ASPIRIN 81 MG CHEW TAB 324 MG PO (13:45)
[2025-11-05 13:58] LABS: Add Manual Diff / Slide Review NO; Hematocrit 42.3 % (41-53); Hemoglobin 14.6 g/dL (13.5-17.5); Lymphocytes Absolute Auto 2200 /uL (1100-4500); Mean Corpuscular HGB Conc 34.6 % (30-36); Mean Corpuscular Hemoglobin 31.8 PG (26-34); Mean Corpuscular Volume 91.8 fL (80-100); Platelet Count 154 X10^3/uL (150-400)
[2025-11-05 14:07] LABS: INR 1.1 (0.9-1.3); Prothrombin Time 12.1 SECONDS (9.4-12.5)
[2025-11-05 14:09] LABS: PTT Partial Thromboplastin Tim 28 SECONDS (25.1-36.5)
[2025-11-05 14:13] LABS: Alanine Aminotransferase 41 IU/L (<50); Albumin 4.5 g/dL (3.5-5.0); Albumin Globulin Ratio 1.5 (1.0-2.8); Alkaline Phosphatase 44 U/L (38-126); Blood Urea Nitrogen 21 mg/dL (9-20); Calcium 9.4 mg/dL (8.4-10.2); Carbon Dioxide 28 mmol/L (22-32); Chloride 101 mmol/L (98-107); Creatine Kinase 60 U/L (55-170); Estimated Glomerular Filt Rate > 60 mL/min (>60); Globulin 3.1 g/dL (1.7-4.1); Glucose 127 mg/dL (70-99); HEMOLYSIS 17 (0-50); Lipase 38 U/L (23-300); Magnesium 1.9 mg/dL (1.6-2.3); Potassium 4.5 mmol/L (3.4-5.1); Sodium 136 mmol/L (137-145); Total Protein 7.6 g/dL (6.3-8.2)
[2025-11-05 14:23] LABS: NT-proBNP (BNP-Adult 18+) 576 pg/mL (<450); Troponin I 0.018 ng/mL (0.01-0.034)
--- NOTE | 2025-11-05 15:37 | ED.GENADULT ---
HPI - General Adult General Chief complaint: Hypertension Stated complaint: High blood pressure. 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 He reports he does not take any hypertension medication. He was at the urologist's office to get results of a rapidly rising PSA they told him his blood pressure was elevated he came to the ER ER for evaluation. It was supposed to see his primary care today but they to told him to go to the ER. He denies any headache chest pain or shortness of breath no palpitations. He generally feels fine. His blood pressure initially was 203/104 but has come down to 187/103 Related Data Home Medications ?Medication ?Instructions ?Recorded ?Confirmed omeprazole 20 mg capsule,delayed 20 mg PO DAILY 01/05/25 11/04/25 release Allergies Allergy/AdvReac Type Severity Reaction Status Date / Time No Known Drug Allergies Allergy Verified 11/04/25 14:47 Patient History Medical History Increased prostate specific antigen (PSA) velocity Rising PSA level Anxiety Traumatic complete tear of left rotator cuff Lower urinary tract symptoms due to benign prostatic hyperplasia Chronic back pain Hearing loss GERD (gastroesophageal reflux disease) Surgical History Anesthesia History of lumbar laminectomy Family History Father Cancer Mother Cancer alcohol intake frequency: 3 or more drinks per day Alcohol type: beer Exam Initial Vital Signs Initial Vital Signs: Vital Signs Temperature 98.0 F 11/05/25 13:27 Pulse Rate 80 11/05/25 13:27 Respiratory Rate 12 11/05/25 13:27 Blood Pressure 203/104 H 11/05/25 13:27 Pulse Oximetry 98 11/05/25 13:27 Oxygen Delivery Method Room Air 11/05/25 13:27 GENERAL: Alert pleasant 80-year-old male appears well and in no acute distress. HEENT: Head atraumatic,EOMI, pupils reactive, face symmetric, moist mucous membranes CARDIOVASCULAR: Regular rate and rhythm without murmurs, rubs or gallops. RESPIRATORY: Breath sounds equal bilaterally, no wheezes rales or rhonchi. ABDOMEN: Soft, nontender. Normoactive bowel sounds all 4 quadrants. No guarding or rebound. EXTREMITIES: Normal range of motion, no clubbing or edema. Neurovascularly intact NEUROLOGICAL: Alert and oriented x4.Normal gait and speech. Cranial nerves II through XII grossly intact. SKIN: Warm, dry, no laceration, no petechiae, no rashes or lesions. Course Orders Ordered: ED Orders 11/05/25 13:33 XR chest 1V Stat EKG-12 Lead Stat 11/05/25 13:43 Complete Blood Count AUTO DIFF Stat Comprehensive Metabolic Panel Stat Lipase Stat Magnesium Stat NT-proBNP (BNP-Adult 18+) Stat PTT Partial Thromboplastin Micheal Stat Prothrombin Time INR Stat Troponin & CK Cardiac Panel Stat Discontinued Medications Aspirin (Aspirin 81 Mg Chew Tab) 324 mg PO NOW ONE Stop: 11/05/25 13:34 Last Admin: 11/05/25 13:45 Dose: 324 mg Documented By: [facility] Vital Signs Vital signs: Vital Signs - 8 hr 11/05/25 13:27 11/05/25 16:10 Temperature 98.0 F Pulse Rate 80 65 Respiratory Rate 12 18 Blood Pressure 203/104 H 187/103 H Pulse Oximetry 98 97 Oxygen Delivery Method Room Air Room Air Medical Decision Making Lab Data 11/05/25 13:43 11/05/25 13:43 Labs: Lab Results 11/05/25 Range/Units 13:43 WBC 5.7 (4.5-11.0) X10^3/uL RBC 4.60 (4.5-5.9) X10^6/uL Hgb 14.6 (13.5-17.5) g/dL Hct 42.3 (41-53) % MCV 91.8 (80-100) fL MCH 31.8 (26-34) PG MCHC 34.6 (30-36) % RDW 13.3 (11.6-14.8) % Plt Count 154 (150-400) X10^3/uL Neut % (Auto) 48.8 L (50-75) % Lymph % (Auto) 39.6 (25-40) % [place] % (Auto) 9.7 (3-14) % Eos % (Auto) 1.5 L (2-4) % Baso % (Auto) 0.4 (0-2) % Neut # (Auto) 2800 (9419-5626) /uL Lymph # (Auto) 2200 (6465-4493) /uL [place] # (Auto) 500 (0-900) /uL Eos # (Auto) 100 (0-450) /uL Baso # (Auto) 0 (0-100) /uL PT 12.1 (9.4-12.5) SECONDS INR 1.1 (0.9-1.3) APTT 28 (25.1-36.5) SECONDS Sodium 136 L (137-145) mmol/L Potassium 4.5 (3.4-5.1) mmol/L Chloride 101 (98-107) mmol/L Carbon Dioxide 28 (22-32) mmol/L BUN 21 H (9-20) mg/dL Creatinine 1.02 (0.66-1.25) mg/dL Estimated GFR > 60 (>60) mL/min BUN/Creatinine Ratio 20.6 (6-22) Glucose 127 H (70-99) mg/dL Calcium 9.4 (8.4-10.2) mg/dL Magnesium 1.9 (1.6-2.3) mg/dL Total Bilirubin 0.6 (0.2-1.3) mg/dL AST 43 (17-59) IU/L ALT 41 (<50) IU/L Alkaline Phosphatase 44 (38-126) U/L Total Creatine Kinase 60 (55-170) U/L Troponin I 0.018 (0.01-0.034) ng/mL NT-Pro-B Natriuret Pep 576 H (<450) pg/mL Total Protein 7.6 (6.3-8.2) g/dL Albumin 4.5 (3.5-5.0) g/dL Globulin 3.1 (1.7-4.1) g/dL Albumin/Globulin Ratio 1.5 (1.0-2.8) Lipase 38 (23-300) U/L Imaging Data Chest x-ray: Radiologist's Impression: PROCEDURE: XR CHEST 1V INDICATIONS: Chest Pain TECHNIQUE: One view of the chest was acquired. COMPARISON: [facility], CR, XR CHEST 2V, 03/18/2024, 9:38. FINDINGS: Surgical changes and devices: None. Lungs and pleura: Lungs are clear. No pleural effusions or pneumothorax. Mediastinum: Mediastinal contours appear normal. Heart size is normal. Bones and chest wall: No suspicious bony lesions. Overlying soft tissues appear unremarkable. IMPRESSION: No acute cardiopulmonary abnormality is seen. Dictated by: Andre Meehan M.D. on 11/05/2025 at 14:21 ECG Data Attestation: I personally reviewed and interpreted this ECG as follows: Prior ECG tracings: available for review (06/23/2019 she has a sinus rhythm to today lead to continues to be low voltage) Interpretation: Sinus rhythm rate 71 MI interval 154 QRS [address] changes some low voltage PVC noted MDM Narrative Medical decision making narrative: Patient 80-year-old male presenting today with asymptomatic hypertension. Does not take blood pressure medications he says he was told that he has white coat syndrome blood pressure has come down but still elevated. Blood work CBC no leukocytosis no anemia CMP within normal limits creatinine 1.0 Coags within normal limits Troponin 0.018 BNP 576 Chest x-ray no acute cardiopulmonary process EKGs shows some low voltage but no acute ischemia Patient presenting today with asymptomatic hypertension no evidence of hypertensive emergency or urgency. He has a blood pressure cuff at home recommend that he check it follow up with his primary and decide if he needs medication. Discharge Plan Departure Patient Disposition: Home Clinical Impression: Elevated blood pressure reading Instructions: DI for High Blood Pressure Activity Restrictions/Additional Instructions: *You have been diagnosed with elevated blood pressure *What to do: At this time please follow up with your primary care provider check your blood pressure 1 to 2 times daily record it if you have persistently elevated blood pressure you may need to start medication *Continue to take medications as directed *Follow up with your primary care provider in 2-3 days or call [phone] *Return to ER if you should have increasing chest pain shortness of breath headache or weakness or any new, worsening or concerning symptoms Prescriptions: No Action omeprazole 20 mg capsule,delayed release(DR/EC) 20 mg PO DAILY Referrals: Vladislav Jenkins MD [Primary Care Provider, [facility]] Stand Alone Forms: Patient Portal/API
[2025-11-05 16:10] VITALS: BP 187/103; PULSE 65; RESP 18; O2SAT 97
== END 2025-11-05 16:12 | disposition home or self-care (01) ==
PROVIDERS: Emergency Provider Emergency Medicine; PCP Family Medicine
DX: I10 Essential (primary) hypertension (principal); R97.20 Elevated prostate specific antigen [PSA]
CPT/HCPCS: 36415; 71045; 80053; 82550; 83690; 83735; 83880; 84484; 85025; 85610; 85730; 93005; 93010; 99283; 99284